=== PATIENT | female | born 1955 | race Caucasian/White ===

== ENCOUNTER 2016-11-06 19:33 | Emergency (ER) | payer MEDICARE, MEDICAID ==
[2016-11-06] MEDS ORDERED: ASPIRIN 81 MG TABLET, CHEWABLE PO ONE (19:46)
--- NOTE | 2016-11-06 19:46 | ER Document Report ---
[id number] Mode of Arrival: Wheelchair Information source: Patient Notes: I have greeted and performed a rapid initial assessment of this patient. A comprehensive ED assessment and evaluation of the patient, analysis of test results and completion of the medical decision making process will be conducted by additional ED providers. TRAVEL OUTSIDE OF THE [place] IN LAST 30 DAYS: No - HPI Patient complains to provider of: LEFT ARM TINGLING Onset: Just prior to arrival Onset/Duration: Sudden Context: PT STATES SHE HAS HAD AR IN PAST WITH SIMILAR SYMPTOMS. PT OF DR. BARBOUR Quality of pain: Pressure Severity: Moderate Pain Level: 3 Associated Symptoms: Chest pain, Nausea, Shortness of breath, Vomiting. denies : Fever Exacerbated by: Denies Relieved by: Denies Similar symptoms previously: Yes Recently seen / treated by doctor: No - Related Data Smoking: Non-smoker Frequency of alcohol use: None Drug Abuse: None Pertinent History: AR WITH STENT PLACEMENT TRIPLE BYPASS, ONE DID NOT TAKE PER PT HTN DM I Allergies/Adverse Reactions: latex [Latex] Allergy (Verified 07/05/13 14:13) Past Medical History - Past Medical History Cardiac Medical History: Reports: Hx Congestive Heart Failure, Hx Coronary Artery Disease, Hx Heart Attack, Hx Hypercholesterolemia, Hx Hypertension, Hx Heart Murmur Pulmonary Medical History: Reports: Hx Bronchitis, Hx COPD Denies: Hx Tuberculosis Endocrine Medical History: Reports: Hx Diabetes Mellitus Type 1, Hx Diabetes Mellitus Type 2 GI Medical History: Reports: Hx Gastroesophageal Reflux Disease Musculoskeltal Medical History: Reports Hx Arthritis - osteo Psychiatric Medical History: Reports: Hx Depression Past Surgical History: Reports: Hx Appendectomy, Hx Cardiac Catheterization - x1 with 1 stent, Hx Cholecystectomy, Hx Coronary Artery Bypass Graft, Hx Coronary Stent, Hx Orthopedic Surgery - cervical spinal surgery, degenerative disc disease, right shoulder scar tis, Other - c spine surgery - Immunizations Hx Diphtheria, Pertussis, Tetanus Vaccination: Yes Physical Exam - Vital signs Vitals: Resp BP Pulse Ox 20 151/92 H 100 11/06/16 19:57 11/06/16 19:57 11/06/16 19:57 Course - Vital Signs Vital signs: Temp Pulse Resp BP Pulse Ox 98.7 F 74 14 160/79 H 100 11/06/16 20:24 11/06/16 20:06 11/06/16 23:01 11/06/16 23:11/06/16 23:01 - Laboratory Result Diagrams: 11/06/16 20:01 11/06/16 20:01 Laboratory results interpreted by me: 11/06/16 11/06/16 11/06/16 20:00 20:01 20:01 RDW 16.6 H Glucose 152 H POC Glucose 145 H Doctor's Discharge - Discharge Clinical Impression: Chest wall pain Condition: Stable Disposition: HOME, SELF-CARE Additional Instructions: Chest Wall Pain: Your chest pain has been diagnosed as coming from the chest wall. This is often caused by straining the muscles or joints in the chest during physical activity, direct trauma, coughing, or vigorous vomiting. Occasionally, no cause can be found. Rest from strenuous physical activity. This kind of chest pain is usually made worse by movement of the chest. Apply gentle warmth to the painful area for 15 minutes every hour or two. You should contact the doctor immediately if things change. Further evaluation is needed if you develop a fever or cough, if the nature of the pain changes, or if you become short of breath. REST. TRY MOIST HEAT IF NEEDED. RETURN IF ANY NEW OR WORSENING SYMPTOMS. FOLLOW UP WITH DR. BARBOUR OR DR. LOPEZ TOMORROW FOR RECHECK. Referrals: JOMAR LOPEZ MD [ACTIVE STAFF] - 11/07/16 JESÚS BARBOUR MD [Primary Care Provider] - 11/07/16
[2016-11-06 20:14] LABS: ABSOLUTE EOSINOPHILS # (AUTO) 0.2 10^3/uL (0.0-0.6); ABSOLUTE LYMPHOCYTES (AUTO) 2.6 10^3/uL (0.5-4.7); ABSOLUTE MONOCYTES (AUTO) 0.7 10^3/uL (0.1-1.4); ABSOLUTE NEUT (AUTO) 3.4 10^3/uL (1.7-8.2); BASOPHILS % (AUTO) 0.5 % (0-2); EOSINOPHILS % (AUTO) 3.3 % (0-6); HEMATOCRIT 37.9 % (36.0-47.0); HEMOGLOBIN 12.6 g/dL (12.0-15.5); HGB HCT DIFFERENCE -0.1; MEAN CORPUSCULAR HEMOGLOBIN 27.2 pg (27.0-33.4); MEAN CORPUSCULAR HGB CONC 33.2 g/dL (32.0-36.0); MEAN CORPUSCULAR VOLUME 82 fl (80-97); MONOCYTES % (AUTO) 10.6 % (3-13); RED BLOOD COUNT 4.63 10^6/uL (3.72-5.28); RED CELL DISTRIBUTION WIDTH 16.6 % (11.5-14.0); SEGMENTED NEUTROPHILS % (AUTO) 48.6 % (42-78)
[2016-11-06 20:18] LABS: PROTHROMBIN TIME 12.7 SEC (11.4-15.4)
--- NOTE | 2016-11-06 20:28 | ER Document Report ---
ED General - General Mode of Arrival: Wheelchair Information source: Patient TRAVEL OUTSIDE OF THE [place] IN LAST 30 DAYS: No - HPI Onset: Other - see narrative Onset/Duration: Persistent Associated symptoms: Other - see narrative <ROXANNE DAVID - Last Filed: 11/06/16 21:34> <SCAR GUARDADO - Last Filed: 11/06/16 22:54> - General Chief Complaint: Numbness of Arm Stated Complaint: ARM NUMBNESS Notes: Patient is a 61-year-old female that presents to the emergency department today with complaints of arm tingling which began 1 hour prior to arrival while the patient was eating dinner. Patient states after that she went to the bathroom, she began feeling nauseated and she vomited x4. Patient states she was "shaky" . Patient states since her symptoms began she has noticed associated chest pressure. Patient had previous CABG on Feb 09 2016. (ROXANNE DAVID) - Related Data Allergies/Adverse Reactions: latex [Latex] Allergy (Verified 07/05/13 14:13) Past Medical History - General Information source: Patient - Social History Smoking Status: Never Smoker Cigarette use (# per day): No Frequency of alcohol use: None Drug Abuse: None Lives with: Family Family History: Reviewed & Not Pertinent - Past Medical History Cardiac Medical History: Reports: Hx Congestive Heart Failure, Hx Coronary Artery Disease, Hx Heart Attack, Hx Hypercholesterolemia, Hx Hypertension, Hx Heart Murmur Pulmonary Medical History: Reports: Hx Bronchitis, Hx COPD Endocrine Medical History: Reports: Hx Diabetes Mellitus Type 1, Hx Diabetes Mellitus Type 2 GI Medical History: Reports: Hx Gastroesophageal Reflux Disease Musculoskeltal Medical History: Reports Hx Arthritis - osteo Psychiatric Medical History: Reports: Hx Depression Past Surgical History: Reports: Hx Appendectomy, Hx Cardiac Catheterization - x1 with 1 stent, Hx Cholecystectomy, Hx Coronary Artery Bypass Graft, Hx Coronary Stent, Hx Orthopedic Surgery - cervical spinal surgery, degenerative disc disease, right shoulder scar tis, Other - c spine surgery - Immunizations Hx Diphtheria, Pertussis, Tetanus Vaccination: Yes Hx Pneumococcal Vaccination: 10/07/09 <ROXANNE DAVID - Last Filed: 11/06/16 21:34> Review of Systems - Review of Systems Constitutional: No symptoms reported EENT: No symptoms reported Cardiovascular: See HPI, Chest pain - "pressure" Respiratory: No symptoms reported Gastrointestinal: See HPI, Nausea, Vomiting Genitourinary: No symptoms reported Female Genitourinary: No symptoms reported Musculoskeletal: No symptoms reported Skin: No symptoms reported Hematologic/Lymphatic: No symptoms reported Neurological/Psychological: See HPI, Tingling - arm -: Yes All other systems reviewed and negative <ROXANNE DAVID - Last Filed: 11/06/16 21:34> Physical Exam - General General appearance: Appears well, Alert In distress: None - HEENT Head: Normocephalic, Atraumatic Eyes: Normal Extraocular movements intact: Yes - Respiratory Respiratory status: No respiratory distress Chest status: Nontender Breath sounds: Normal Chest palpation: Tender - anterior chest wall tenderness with palpation - Cardiovascular Rhythm: Regular Heart sounds: Normal auscultation Murmur: No - Abdominal Inspection: Normal Distension: No distension Tenderness: Nontender - Extremities General upper extremity: Normal inspection, Normal ROM. No: Edema General lower extremity: Normal inspection, Normal ROM. No: Edema - Neurological Neuro grossly intact: Yes Cognition: Normal Speech: Normal Cranial nerves: Normal - Psychological Associated symptoms: Normal affect, Normal mood - Skin Skin Temperature: Warm Skin Moisture: Dry Skin Color: Normal <ROXANNE DAVID - Last Filed: 11/06/16 21:34> Course - Laboratory Result Diagrams: 11/06/16 20:01 11/06/16 20:01 <ROXANNE DAVID - Last Filed: 11/06/16 21:34> - Laboratory Result Diagrams: 11/06/16 20:01 11/06/16 20:01 <SCAR GUARDADO - Last Filed: 11/06/16 22:54> - Re-evaluation Re-evalutation: 11/06/16 22:43 The patient's EKG does not show acute change. The patient's pain is reproducible with palpation. Troponins checked 2 hours apart are undetectable. The patient is comfortable at this time and is not having pain. (SCAR GUARDADO) - Vital Signs Vital signs: Temp Pulse Resp BP Pulse Ox 98.7 F 74 18 156/68 H 99 11/06/16 20:24 11/06/16 20:06 11/06/16 22:01 11/06/16 22:01 11/06/16 22:01 (ROXANNE DAVID) (SCAR GUARDADO) - Laboratory Laboratory results interpreted by me: 11/06/16 11/06/16 20:01 20:01 RDW 16.6 H Glucose 152 H (ROXANNE DAVID) (SCAR GUARDADO) Discharge <ROXANNE DAVID - Last Filed: 11/06/16 21:34> <SCAR GUARDADO - Last Filed: 11/06/16 22:54> - Discharge Clinical Impression: Chest wall pain Condition: Stable Disposition: HOME, SELF-CARE Additional Instructions: Chest Wall Pain: Your chest pain has been diagnosed as coming from the chest wall. This is often caused by straining the muscles or joints in the chest during physical activity, direct trauma, coughing, or vigorous vomiting. Occasionally, no cause can be found. Rest from strenuous physical activity. This kind of chest pain is usually made worse by movement of the chest. Apply gentle warmth to the painful area for 15 minutes every hour or two. You should contact the doctor immediately if things change. Further evaluation is needed if you develop a fever or cough, if the nature of the pain changes, or if you become short of breath. REST. TRY MOIST HEAT IF NEEDED. RETURN IF ANY NEW OR WORSENING SYMPTOMS. FOLLOW UP WITH DR. BARBOUR OR DR. LOPEZ TOMORROW FOR RECHECK. Referrals: JESÚS BARBOUR MD [Primary Care Provider] - 11/07/16 JMOAR LOPEZ MD [ACTIVE STAFF] - 11/07/16 Scribe Attestation: 11/06/16 22:53 I personally performed the services described in the documentation, reviewed and edited the documentation which was dictated to the scribe in my presence, and it accurately records my words and actions. (SCAR GUARDADO) Scribe Documentation - Scribe Written by Dannaibgenet:: Michelle Barrios, [id number] 11/06/16 acting as scribe for :: Jayla <ROXANNE DAVID - Last Filed: 11/06/16 21:34>
[2016-11-06] MEDS ORDERED: MORPHINE SULFATE 10 MG/ML INJ IV ONE (20:34)
[2016-11-06] MEDS ORDERED: ONDANSETRON HCL INJ/PF 4 MG/2 ML SDV IV ONE (20:34)
[2016-11-06 20:36] LABS: ALANINE AMINOTRANSFERASE 25 U/L (9-52); ALBUMIN 3.9 g/dL (3.5-5.0); ALKALINE PHOSPHATASE 104 U/L (38-126); ANION GAP 12 (5-19); ASPARTATE AMINO TRANSFERASE 25 U/L (14-36); BILIRUBIN,TOTAL 0.9 mg/dL (0.2-1.3); BLOOD UREA NITROGEN 20 mg/dL (7-20); CALCIUM 9.8 mg/dL (8.4-10.2); CARBON DIOXIDE 29 mmol/L (22-30); CHLORIDE 99 mmol/L (98-107); CREATINE KINASE 39 U/L (30-135); CREATININE RESULT 0.83 mg/dL (0.52-1.25); GLUCOSE 152 mg/dL (75-110); POTASSIUM 4.2 mmol/L (3.6-5.0); SODIUM 139.8 mmol/L (137-145); TOTAL PROTEIN 7.7 g/dL (6.3-8.2)
[2016-11-06 20:46] LABS: CREATINE KINASE MB 0.25 ng/mL (<4.55); TROPONIN I < 0.012 ng/mL
[2016-11-06 23:24] VITALS: BP 160/79
--- NOTE | 2016-11-07 09:24 | EKG REPORT ---
SEVERITY:- BORDERLINE ECG - SINUS RHYTHM PROBABLE LEFT ATRIAL ABNORMALITY LOW VOLTAGE IN FRONTAL LEADS BORDERLINE R WAVE PROGRESSION, ANTERIOR LEADS : Confirmed by: Ed Yepez 07-Nov-2016 09:23:35
== END 2016-11-06 23:24 | disposition home or self-care (01) ==
LOC: ER 19:33
DX: R07.89 Other chest pain (principal); R20.2 Paresthesia of skin; R11.2 Nausea with vomiting, unspecified; I25.10 Atherosclerotic heart disease of native coronary artery without angina pectoris; I25.2 Old myocardial infarction; I10 Essential (primary) hypertension; J44.9 Chronic obstructive pulmonary disease, unspecified; E11.9 Type 2 diabetes mellitus without complications; Z95.1 Presence of aortocoronary bypass graft; Z98.61 Coronary angioplasty status; Z91.040 Latex allergy status
CPT/HCPCS: 93005; 99284; 96374; 96375; 36415; 82553; 82962; 82550; 85025; 85610; 80053; 84484; 71010; 93010; A9270; J2270; J2405

== ENCOUNTER 2016-11-25 17:21 | Emergency (ER) | payer MEDICARE, MEDICAID ==
[2016-11-25] MEDS ORDERED: ASPIRIN 81 MG TABLET, CHEWABLE PO ONE (18:04)
--- NOTE | 2016-11-25 18:05 | ER Document Report ---
ED Medical Screen (RME) - General Stated Complaint: CHEST PAIN, BACK PAIN Information source: Patient Notes: Reports chest pain that started around 4 PM. Patient reports taking nitroglycerin at home that initially helped her chest pain symptoms, but that chest pain symptoms returned. Patient does report some mild difficulty breathing. No nausea or vomiting. hx: Triple bypass, [place], diabetes I have greeted and performed a rapid initial assessment of this patient. A comprehensive ED assessment and evaluation of the patient, analysis of test results and completion of the medical decision making process will be conducted by additional ED providers. TRAVEL OUTSIDE OF THE [place] IN LAST 30 DAYS: No - Related Data Allergies/Adverse Reactions: latex [Latex] Allergy (Verified 11/25/16 18:01) Past Medical History - Past Medical History Cardiac Medical History: Reports: Hx Congestive Heart Failure, Hx Coronary Artery Disease, Hx Heart Attack, Hx Hypercholesterolemia, Hx Hypertension, Hx Heart Murmur Pulmonary Medical History: Reports: Hx Bronchitis, Hx COPD Denies: Hx Tuberculosis Endocrine Medical History: Reports: Hx Diabetes Mellitus Type 1, Hx Diabetes Mellitus Type 2 Renal/ Medical History: Denies: Hx Peritoneal Dialysis GI Medical History: Reports: Hx Gastroesophageal Reflux Disease Musculoskeltal Medical History: Reports Hx Arthritis - osteo Psychiatric Medical History: Reports: Hx Depression Past Surgical History: Reports: Hx Appendectomy, Hx Cardiac Catheterization - x1 with 1 stent, Hx Cholecystectomy, Hx Coronary Artery Bypass Graft, Hx Coronary Stent, Hx Orthopedic Surgery - cervical spinal surgery, degenerative disc disease, right shoulder scar tis, Other - c spine surgery - Immunizations Hx Diphtheria, Pertussis, Tetanus Vaccination: Yes Physical Exam - Vital signs Vitals: Temp Pulse Resp BP Pulse Ox 97.6 F 73 16 206/75 H 99 11/25/16 17:39 11/25/16 17:39 11/25/16 17:39 11/25/16 17:39 11/25/16 17:39 - Cardiovascular Rhythm: Regular Heart sounds: S1 appreciated, S2 appreciated Course - Vital Signs Vital signs: Temp Pulse Resp BP Pulse Ox 97.6 F 73 16 206/75 H 99 11/25/16 17:39 11/25/16 17:39 11/25/16 17:39 11/25/16 17:39 11/25/16 17:39
[2016-11-25 18:38] LABS: APPEARANCE,URINE SLIGHTLY-CLOUDY; BILIRUBIN,URINE NEGATIVE (NEGATIVE); GLUCOSE, URINE 50 mg/dL (NEGATIVE); KETONES,URINE NEGATIVE (NEGATIVE); LEUKOCYTE ESTERASE,URINE SMALL (NEGATIVE); NITRITE,URINE NEGATIVE (NEGATIVE); PROTEIN,URINE NEGATIVE (NEGATIVE); URINE SPECIFIC GRAVITY 1.004; UROBILINOGEN,URINE NEGATIVE mg/dL (<2.0)
[2016-11-25 18:38] LABS: ABSOLUTE EOSINOPHILS # (AUTO) 0.1 10^3/uL (0.0-0.6); ABSOLUTE MONOCYTES (AUTO) 0.5 10^3/uL (0.1-1.4); ABSOLUTE NEUT (AUTO) 2.9 10^3/uL (1.7-8.2); BASOPHILS % (AUTO) 0.6 % (0-2); EOSINOPHILS % (AUTO) 2.6 % (0-6); HEMATOCRIT 37.5 % (36.0-47.0); HEMOGLOBIN 12.4 g/dL (12.0-15.5); HGB HCT DIFFERENCE -0.3; LYMPHOCYTES % (AUTO) 35.6 % (13-45); MEAN CORPUSCULAR HGB CONC 33.1 g/dL (32.0-36.0); MEAN CORPUSCULAR VOLUME 82 fl (80-97); MONOCYTES % (AUTO) 9.2 % (3-13); RED CELL DISTRIBUTION WIDTH 16.7 % (11.5-14.0); WHITE BLOOD COUNT 5.6 10^3/uL (4.0-10.5)
[2016-11-25 18:55] LABS: ALANINE AMINOTRANSFERASE 25 U/L (9-52); ALBUMIN 4.3 g/dL (3.5-5.0); ALKALINE PHOSPHATASE 96 U/L (38-126); ANION GAP 10 (5-19); ASPARTATE AMINO TRANSFERASE 18 U/L (14-36); BILIRUBIN,TOTAL 0.8 mg/dL (0.2-1.3); BLOOD UREA NITROGEN 12 mg/dL (7-20); CALCIUM 10.2 mg/dL (8.4-10.2); CARBON DIOXIDE 29 mmol/L (22-30); CHLORIDE 104 mmol/L (98-107); CREATINE KINASE 47 U/L (30-135); GLUCOSE 125 mg/dL (75-110); MAGNESIUM 1.8 mg/dL (1.6-2.3); POTASSIUM 4.5 mmol/L (3.6-5.0); SODIUM 142.8 mmol/L (137-145); TOTAL PROTEIN 7.3 g/dL (6.3-8.2)
[2016-11-25 19:06] LABS: CREATINE KINASE MB 0.34 ng/mL (<4.55)
[2016-11-25 19:15] LABS: TROPONIN I < 0.012 ng/mL
--- NOTE | 2016-11-25 19:50 | ER Document Report ---
ED General - General Chief Complaint: Chest Pain Stated Complaint: CHEST PAIN, BACK PAIN Notes: Patient is a 61-year-old female past medical history of coronary artery disease status post CABG, most recent catheterization in April 2016 after I saw this patient and she was having a NSTEMI, who presents with chest pain. States the pain started abruptly several hours prior to arrival. Described as a dull, throbbing left-sided chest pain with radiation to the left arm. States pain does not feel as bad as when she has had heart attacks in the past. She did take nitroglycerin at home without improvement of her symptoms although she knows of the chest pain is now completely resolved. Nothing worsens or symptoms. She has not seen a race steward or primary care doctor concerns. She did have a stress test in late September 2016 which was noted to be normal per her report. She denies any history of DVT or pulmonary embolus. No associated nausea, vomiting, diaphoresis or shortness of breath. TRAVEL OUTSIDE OF THE [place] IN LAST 30 DAYS: No - Related Data Allergies/Adverse Reactions: latex [Latex] Allergy (Verified 11/25/16 18:01) Past Medical History - General Information source: Patient - Social History Smoking Status: Never Smoker Chew tobacco use (# tins/day): No Frequency of alcohol use: None Drug Abuse: None Lives with: Spouse/Significant other Family History: Reviewed & Not Pertinent Patient has suicidal ideation: No Patient has homicidal ideation: No - Past Medical History Cardiac Medical History: Reports: Hx Congestive Heart Failure, Hx Coronary Artery Disease, Hx Heart Attack, Hx Hypercholesterolemia, Hx Hypertension, Hx Heart Murmur Pulmonary Medical History: Reports: Hx Bronchitis, Hx COPD Denies: Hx Tuberculosis Endocrine Medical History: Reports: Hx Diabetes Mellitus Type 1, Hx Diabetes Mellitus Type 2 Renal/ Medical History: Denies: Hx Peritoneal Dialysis GI Medical History: Reports: Hx Gastroesophageal Reflux Disease Musculoskeltal Medical History: Reports Hx Arthritis - osteo Psychiatric Medical History: Reports: Hx Depression Past Surgical History: Reports: Hx Appendectomy, Hx Cardiac Catheterization - x1 with 1 stent, Hx Cholecystectomy, Hx Coronary Artery Bypass Graft, Hx Coronary Stent, Hx Orthopedic Surgery - cervical spinal surgery, degenerative disc disease, right shoulder scar tis, Other - c spine surgery - Immunizations Hx Diphtheria, Pertussis, Tetanus Vaccination: Yes Hx Pneumococcal Vaccination: 10/07/09 Review of Systems - Review of Systems Notes: Constitutional: Negative for fever. HENT: Negative for sore throat. Eyes: Negative for visual changes. Cardiovascular: Positive for chest pain. Respiratory: Negative for shortness of breath. Gastrointestinal: Negative for abdominal pain, vomiting or diarrhea. Genitourinary: Negative for dysuria. Musculoskeletal: Negative for back pain. Skin: Negative for rash. Neurological: Negative for headaches, weakness or numbness. 10 point ROS negative except as marked above and in HPI. Physical Exam - Vital signs Vitals: Temp Pulse Resp BP Pulse Ox 97.6 F 73 16 206/75 H 99 11/25/16 17:39 11/25/16 17:39 11/25/16 17:39 11/25/16 17:39 11/25/16 17:39 Interpretation: Hypertensive Notes: PHYSICAL EXAMINATION: GENERAL: Well-appearing, well-nourished and in no acute distress. HEAD: Atraumatic, normocephalic. EYES: Pupils equal round and reactive to light, extraocular movements intact, sclera anicteric, conjunctiva are normal. ENT: nares patent, oropharynx clear without exudates. Moist mucous membranes. NECK: Normal range of motion, supple without lymphadenopathy LUNGS: Breath sounds clear to auscultation bilaterally and equal. No wheezes rales or rhonchi. HEART: Regular rate and rhythm without murmurs ABDOMEN: Soft, nontender, normoactive bowel sounds. No guarding, no rebound. No masses appreciated. EXTREMITIES: Normal range of motion, no pitting or edema. No cyanosis. NEUROLOGICAL: No focal neurological deficits. Moves all extremities spontaneously and on command. PSYCH: Normal mood, normal affect. SKIN: Warm, Dry, normal turgor, no rashes or lesions noted. Course - Re-evaluation Re-evalutation: 11/25/16 19:44 Presentation of chest pain in an otherwise well appearing patient. Low clinical suspicion for ACS given clinical history, exam, EKG without ST elevations or depressions, and negative initial troponin. Patient did have a normal stress test in September 2016 which was noted to be normal. PE also seems unlikely given clinical history, absence of tachycardia or dyspnea. Well's score 0. CXR without evidence of pneumothorax or pneumonia. No widened mediastinum. Aortic dissection also seems unlikely given history, symmetric pulses, CXR, and vitals. Will obtain a second troponin 3 hours from the first which will be at over 6 hours from onset of pain today. I have also discussed this case with , the patient's race steward: He agrees that a second troponin remains negative patient will be safe for discharge home with follow-up with him in the office in the morning. 11/25/16 22:46 Second troponin remains negative. Patient continues to be chest pain-free.of note, patient is hypertensive here in the emergency department she is not had her normal home antihypertensives. I've instructed her to take these when she gets home. At this time will discharge with return precautions and follow-up recommendations. Verbal discharge instructions given a the bedside and opportunity for questions given. Medication warnings reviewed. Patient is in agreement with this plan and has verbalized understanding of return precautions and the need for follow-up with her race steward in the morning. - Vital Signs Vital signs: Temp Pulse Resp BP Pulse Ox 97.6 F 73 17 200/79 H 98 11/25/16 17:39 11/25/16 17:39 11/25/16 23:01 11/25/16 23:01 11/25/16 23:01 - Laboratory Result Diagrams: 11/25/16 18:20 11/25/16 18:20 Laboratory results interpreted by me: 11/25/16 11/25/16 11/25/16 17:36 18:20 18:20 RDW 16.7 H Glucose 125 H Urine Glucose (UA) 50 H Ur Leukocyte Esterase SMALL H - Diagnostic Test Radiology reviewed: Image reviewed, Reports reviewed Radiology results interpreted by me: 11/25/16 19:50 Chest x-ray: No acute infiltrate or pneumothorax - EKG Interpretation by Me Additional EKG results interpreted by me: 11/25/16 19:50 Sinus rhythm. Rate 79. No ST elevations or depressions. Discharge - Discharge Clinical Impression: Chest pain Condition: Good Disposition: HOME, SELF-CARE Additional Instructions: You were seen today for chest pain. The exact cause of your pain is unclear. However, based on your cardiac enzyme testing, chest x-ray, and EKG it does not appear that it is from an immediately life-threatening cause at this time. I have spoken with your race steward Dr. Yepez who has asked that you come to his office in the morning for follow-up appointment. Please return to emergency department immediately if you have worsening of your chest pain, shortness of breath, vomiting, become unable to exert yourself due to pain or difficulty breathing, you pass out, or have any pain that radiates into your arms, jaw, or back. Please also return if you have any additional symptoms that are concerning to you. Referrals: JESÚS BARBOUR MD [Primary Care Provider] - Follow up as needed
--- NOTE | 2016-11-25 21:56 | EKG REPORT ---
SEVERITY:- ABNORMAL ECG - SINUS RHYTHM PROBABLE LEFT ATRIAL ABNORMALITY CONSIDER ANTEROSEPTAL INFARCT NONSPECIFIC ST-T CHANGES- V5-V6 LEADS : Confirmed by: Ed Yepez 25-Nov-2016 21:56:11
[2016-11-25 23:09] VITALS: BP 200/79
== END 2016-11-25 23:01 | disposition home or self-care (01) ==
LOC: ER 17:21
DX: R07.9 Chest pain, unspecified (principal); M54.9 Dorsalgia, unspecified
CPT/HCPCS: 93005; 99285; 36415; 82553; 82550; 83735; 85025; 80053; 81001; 84484; 71020; 93010; A9270

== ENCOUNTER 2017-05-21 02:20 | Emergency (ER) | payer MEDICARE, MEDICAID ==
[2017-05-21] MEDS ORDERED: ASPIRIN 81 MG TABLET, CHEWABLE PO ONE (02:43)
[2017-05-21] MEDS ORDERED: ONDANSETRON HCL INJ/PF 4 MG/2 ML SDV IV ONE (03:20)
[2017-05-21] MEDS ORDERED: NITROGLYCERIN 2% OINTMENT 1 GM PACKET TP ONE (03:20)
[2017-05-21] MEDS ORDERED: NORMAL SALINE 500 ML IV ONE (03:20)
[2017-05-21 03:37] LABS: ABSOLUTE BASOPHILS # (AUTO) 0.1 10^3/uL (0.0-0.2); ABSOLUTE EOSINOPHILS # (AUTO) 0.2 10^3/uL (0.0-0.6); ABSOLUTE LYMPHOCYTES (AUTO) 2.6 10^3/uL (0.5-4.7); ABSOLUTE MONOCYTES (AUTO) 0.7 10^3/uL (0.1-1.4); BASOPHILS % (AUTO) 0.8 % (0-2); EOSINOPHILS % (AUTO) 3.1 % (0-6); HEMATOCRIT 41.7 % (36.0-47.0); HGB HCT DIFFERENCE 0.3; LYMPHOCYTES % (AUTO) 34.5 % (13-45); MEAN CORPUSCULAR HEMOGLOBIN 29.4 pg (27.0-33.4); MEAN CORPUSCULAR HGB CONC 33.6 g/dL (32.0-36.0); MEAN CORPUSCULAR VOLUME 88 fl (80-97); RED BLOOD COUNT 4.76 10^6/uL (3.72-5.28); RED CELL DISTRIBUTION WIDTH 15.4 % (11.5-14.0); SEGMENTED NEUTROPHILS % (AUTO) 52.6 % (42-78); WHITE BLOOD COUNT 7.7 10^3/uL (4.0-10.5)
[2017-05-21 03:44] LABS: ALANINE AMINOTRANSFERASE 40 U/L (9-52); ALBUMIN 4.2 g/dL (3.5-5.0); ALKALINE PHOSPHATASE 117 U/L (38-126); ANION GAP 13 (5-19); ASPARTATE AMINO TRANSFERASE 27 U/L (14-36); BILIRUBIN,DIRECT 0.4 mg/dL (0.0-0.4); BILIRUBIN,TOTAL 1.1 mg/dL (0.2-1.3); BLOOD UREA NITROGEN 22 mg/dL (7-20); CALCIUM 10.1 mg/dL (8.4-10.2); CARBON DIOXIDE 24 mmol/L (22-30); CHLORIDE 102 mmol/L (98-107); CREATINE KINASE 47 U/L (30-135); CREATININE RESULT 1.03 mg/dL (0.52-1.25); GLUCOSE 195 mg/dL (75-110); LIPASE 177.1 U/L (23-300); MAGNESIUM 1.6 mg/dL (1.6-2.3); POTASSIUM 4.1 mmol/L (3.6-5.0); SODIUM 138.7 mmol/L (137-145); TOTAL PROTEIN 7.5 g/dL (6.3-8.2)
[2017-05-21 03:56] LABS: CREATINE KINASE MB 0.89 ng/mL (<4.55)
[2017-05-21 04:02] LABS: TROPONIN I 0.057 ng/mL
--- NOTE | 2017-05-21 04:17 | RADIOLOGY REPORT (SQ) ---
EXAM DESCRIPTION: CHEST SINGLE VIEW COMPLETED DATE/TIME: 05/21/2017 4:05 am REASON FOR STUDY: cp COMPARISON: None. EXAM PARAMETERS: NUMBER OF VIEWS: One view. TECHNIQUE: Single frontal radiographic view of the chest acquired. RADIATION DOSE: NA LIMITATIONS: None. FINDINGS: LUNGS AND PLEURA: No opacities, masses or pneumothorax. No pleural effusion. MEDIASTINUM AND HILAR STRUCTURES: No masses. Contour normal. HEART AND VASCULAR STRUCTURES: Heart normal in size. Normal vasculature. BONES: No acute findings. HARDWARE: Prior sternotomy. OTHER: No other significant finding. IMPRESSION: NO ACUTE RADIOGRAPHIC FINDING IN THE CHEST. TECHNICAL DOCUMENTATION: JOB ID: [id number]
[2017-05-21] MEDS ORDERED: ENOXAPARIN SODIUM INJ 100 MG/1 ML DISP.SYRIN SUBCUT SCH ×2 (05:15→18:00)
[2017-05-21] MEDS ORDERED: ENOXAPARIN SODIUM INJ 100 MG/1 ML DISP.SYRIN SUBCUT ONE (05:30)
[2017-05-21] MEDS ORDERED: MORPHINE SULFATE 10 MG/ML INJ IV PRN (05:48)
[2017-05-21] MEDS: ONDANSETRON HCL INJ/PF 4 MG/2 ML SDV IV PRN ×2 (06:07→20:08)
[2017-05-21 06:12] LABS: APPEARANCE,URINE CLOUDY; BILIRUBIN,URINE NEGATIVE (NEGATIVE); GLUCOSE, URINE NEGATIVE (NEGATIVE); KETONES,URINE NEGATIVE (NEGATIVE); LEUKOCYTE ESTERASE,URINE LARGE (NEGATIVE); NITRITE,URINE POSITIVE (NEGATIVE); PROTEIN,URINE 30 mg/dL (NEGATIVE); URINE SPECIFIC GRAVITY 1.019
[2017-05-21] MEDS ORDERED: CEFTRIAXONE 1 GM/D5W RTU 50 ML IV ONE (06:23)
--- NOTE | 2017-05-21 06:26 | ER Document Report ---
ED General - General Chief Complaint: Chest Pain Stated Complaint: CHEST PAIN Time Seen by Provider: 05/21/17 02:45 TRAVEL OUTSIDE OF THE [place]. IN LAST 30 DAYS: No - HPI Patient complains to provider of: Chest pain Notes: Patient coming in for evaluation of chest pain. Patient states significant chest pain over the weekend seen at her PCPs office earlier today and EKG performed showing diffuse T-wave inversions changed from her previous EKG and was told by her PCP to go to the cardiac center at [facility] where she has had previous bypass and stents placed patient states that she went to [facility] however after waiting in the ER for 10 hours drove back to [place] during the trip started experiencing chest pain with nausea vomiting therefore came to the ER here at [facility]. Patient states pain continued still feels nauseous. Patient other than traveling today denies any other travel denies any fevers chills diarrhea denies any trauma. Patient states recently did see her accounts payable assistant currently pending possible stent placement and part of her bypass grafts - Related Data Allergies/Adverse Reactions: latex [Latex] Allergy (Verified 11/25/16 18:01) Past Medical History - Social History Smoking Status: Unknown if Ever Smoked Family History: Reviewed & Not Pertinent - Past Medical History Cardiac Medical History: Reports: Hx Congestive Heart Failure, Hx Coronary Artery Disease, Hx Heart Attack, Hx Hypercholesterolemia, Hx Hypertension, Hx Heart Murmur Pulmonary Medical History: Reports: Hx Bronchitis, Hx COPD Denies: Hx Tuberculosis Endocrine Medical History: Reports: Hx Diabetes Mellitus Type 1, Hx Diabetes Mellitus Type 2 Renal/ Medical History: Denies: Hx Peritoneal Dialysis GI Medical History: Reports: Hx Gastroesophageal Reflux Disease Musculoskeltal Medical History: Reports Hx Arthritis - osteo Psychiatric Medical History: Reports: Hx Depression Past Surgical History: Reports: Hx Appendectomy, Hx Cardiac Catheterization - x1 with 1 stent, Hx Cholecystectomy, Hx Coronary Artery Bypass Graft, Hx Coronary Stent, Hx Orthopedic Surgery - cervical spinal surgery, degenerative disc disease, right shoulder scar tis, Other - c spine surgery - Immunizations Hx Diphtheria, Pertussis, Tetanus Vaccination: Yes Hx Pneumococcal Vaccination: 10/07/09 Review of Systems - Review of Systems Constitutional: No symptoms reported EENT: No symptoms reported Cardiovascular: Chest pain Respiratory: No symptoms reported Gastrointestinal: No symptoms reported Genitourinary: No symptoms reported Female Genitourinary: No symptoms reported Musculoskeletal: No symptoms reported Skin: No symptoms reported Hematologic/Lymphatic: No symptoms reported Neurological/Psychological: No symptoms reported Physical Exam - Vital signs Vitals: Resp 20 05/21/17 02:54 Interpretation: Normal - General General appearance: Appears well, Alert - HEENT Head: Normocephalic, Atraumatic Eyes: Normal Pupils: PERRL - Respiratory Respiratory status: No respiratory distress Chest status: Nontender Breath sounds: Normal Chest palpation: Normal - Cardiovascular Rhythm: Regular Heart sounds: Normal auscultation Murmur: No - Abdominal Inspection: Normal Distension: No distension Bowel sounds: Normal Tenderness: Nontender Organomegaly: No organomegaly - Back Back: Normal, Nontender - Extremities General upper extremity: Normal inspection, Nontender, Normal color, Normal ROM , Normal temperature General lower extremity: Normal inspection, Nontender, Normal color, Normal ROM , Normal temperature, Normal weight bearing. No: Hortencia's sign - Neurological Neuro grossly intact: Yes Cognition: Normal Orientation: AAOx4 Sweetser Coma Scale Eye Opening: Spontaneous Sweetser Coma Scale Verbal: Oriented Sweetser Coma Scale Motor: Obeys Commands Joni Coma Scale Total: 15 Speech: Normal Motor strength normal: LUE, RUE, LLE, RLE Sensory: Normal - Psychological Associated symptoms: Normal affect, Normal mood - Skin Skin Temperature: Warm Skin Moisture: Dry Skin Color: Normal Course - Re-evaluation Re-evalutation: 05/21/17 06:23 EKG shows diffuse T-wave inversions which are new compared to EKG from November. T-wave inversions from V2 to V6 that are very deep. Patient's lab work shows negative troponin negative chest x-ray. Patient's pain improved with nitro. Patient also complaining of dysuria states currently being treated for UTI urinalysis found returned showing UTI will give Rocephin we will send urine for culture. Discuss case with PCP Lacy Benson requesting to transfer patient to [facility] discuss case with track repairer helper at [facility]. Agrees with transfer of the patient currently states that there is a prolonged wait time for cardiac beds. Agrees with current management requesting Lovenox for possible unstable angina. I did discuss this with patient patient states an understanding. - Vital Signs Vital signs: Temp Pulse Resp BP Pulse Ox 23 H 104/37 L 95 05/21/17 03:46 05/21/17 05:01 05/21/17 05:01 - Laboratory Result Diagrams: 05/21/17 03:20 05/21/17 03:20 Laboratory results interpreted by me: 05/21/17 05/21/17 05/21/17 03:20 03:20 05:32 RDW 15.4 H BUN 22 H Est GFR (Non-Af Amer) 54 L Glucose 195 H Urine Protein 30 H Urine Nitrite POSITIVE H Urine Urobilinogen 2.0 H Ur Leukocyte Esterase LARGE H Discharge - Discharge Clinical Impression: Chest pain Qualifiers: Chest pain type: unspecified Qualified Code(s): R07.9 - Chest pain, unspecified Urinary tract infection Qualifiers: Urinary tract infection type: acute cystitis Hematuria presence: without hematuria Qualified Code(s): N30.00 - Acute cystitis without hematuria Condition: Good Disposition: [facility]
[2017-05-21 06:57] LABS: PROTHROMBIN TIME 12.6 SEC (11.4-15.4)
--- NOTE | 2017-05-21 07:55 | EKG REPORT ---
SEVERITY:- ABNORMAL ECG - SINUS RHYTHM PROBABLE LEFT ATRIAL ABNORMALITY NONSPECIFIC INTRAVENTRICULAR CONDUCTION DELAY CONSIDER ANTERIOR INFARCT ST DEPRESSION, CONSIDER ISCHEMIA, LAT LEADS : Confirmed by: Tee Valera MD 21-May-2017 07:54:31
--- NOTE | 2017-05-21 07:56 | EKG REPORT ---
SEVERITY:- ABNORMAL ECG - SINUS RHYTHM REPOL ABNRM, PROBABLE ISCHEMIA, ANT-LAT LEADS, THIS IS NEW, COMPARED TO LAST EKG 11/25/16 . CLINICAL CORRELATION NEEDED. PROLONGED QT INTERVAL : Confirmed by: Tee Valera MD 21-May-2017 07:55:45
[2017-05-21] MEDS ORDERED: ATORVASTATIN CALCIUM 80 MG TABLET PO ONE (10:13)
[2017-05-21] MEDS ORDERED: GLUCAGON,HUMAN RECOMB 1 MG INJ IM PRN (10:22)
[2017-05-21] MEDS ORDERED: DEXTROSE 40% GEL 15 GM TUBE PO PRN ×2 (10:22)
[2017-05-21] MEDS ORDERED: DEXTROSE 50%-WATER 25 GM/50 ML DISP.SYRIN IV PRN ×2 (10:22)
[2017-05-21] MEDS ORDERED: PREGABALIN 100 MG CAPSULE PO SCH (10:30)
[2017-05-21] MEDS ORDERED: SERTRALINE HCL 50 MG TABLET PO SCH (10:30)
[2017-05-21] MEDS ORDERED: ACETAMINOPHEN 325 MG TABLET PO ONE (10:34)
[2017-05-21] MEDS ORDERED: TICAGRELOR 90 MG TABLET PO SCH (10:45)
[2017-05-21] MEDS ORDERED: CEFTRIAXONE 1 GM/D5W RTU 1 GM/50 ML RTUPB IV ONE (10:54)
[2017-05-21] MEDS: INSULIN REG, HUMAN 100 UNIT/ML 3 ML VIAL (PYX) SUBCUT PRN ×2 (11:19→16:29)
--- NOTE | 2017-05-21 17:32 | ER Document Report ---
Doctor's Note Notes: 05/21/17 17:29 Patient had remained stable throughout the day with systolic blood pressures usually running between 95 and 105. Her troponins have been trending down. She remains on a wait list for [facility]. Most of her medications were resumed today, except for the blood pressure, beta-blockers and nitrates due to the low heart rate, low blood pressure throughout the day, and she is on nitroglycerin paste. She also did not have Vesicare and omeprazole started as they are not carried by the hospital, and are not urgently needed. Patient care is transferred to Dr. Webb at this time.
[2017-05-21 20:59] VITALS: BP 143/75
[2017-05-21] MEDS ORDERED: PREGABALIN 100 MG CAPSULE PO ONE (21:00)
--- NOTE | 2017-05-21 23:00 | ER Document Report ---
Doctor's Note Notes: 05/21/17 20:00 Transport is here for patient. Patient is medically stable for transfer at this time.
[2017-05-22] MEDS ORDERED: PREGABALIN 100 MG CAPSULE PO SCH (10:00)
[2017-05-22] MEDS ORDERED: FLUTICASONE NASAL SPRAY 50 MCG/SPRY 120 SPRAY/16 GM NASL SCH (14:00)
[2017-05-23] MEDS ORDERED: ASPIRIN 81 MG TABLET, CHEWABLE PO SCH (10:00)
== END 2017-05-21 20:43 | disposition short-term general hospital (02) ==
LOC: ER 02:20
DX: N30.00 Acute cystitis without hematuria (principal); R07.9 Chest pain, unspecified; E11.9 Type 2 diabetes mellitus without complications; I50.9 Heart failure, unspecified; I25.10 Atherosclerotic heart disease of native coronary artery without angina pectoris; I11.0 Hypertensive heart disease with heart failure; Z90.49 Acquired absence of other specified parts of digestive tract; Z95.1 Presence of aortocoronary bypass graft; Z91.040 Latex allergy status
CPT/HCPCS: 93005; 99285; 96372; 96375; 96365; 36415; 87040; 87086; 82553; 82962; 82550; 83690; 83735; 85025; 85610; 85730; 87088; 80053; 81001; 84484; 87186; 71010; 93010; A9270 ×6; J2270; J2405; J7040; J1650; J0696; J1815; J3490

== ENCOUNTER 2017-10-17 13:31 | Observation (INO) | payer MEDICARE, MEDICAID ==
--- NOTE | 2017-10-17 15:41 | ER Document Report ---
ED Medical Screen (RME) - General Chief Complaint: Fall Stated Complaint: FALL/PAIN ALL OVER Time Seen by Provider: 10/17/17 15:30 Notes: The patient is a 62 yo female, PMHX DM, presents after frequent falls today and intermittent slurred speech earlier today. She landed on her knees. Not sure if she hit her head. BG 380's PE: No acute distress. No slurred speech. 5/5 strength in all 4 extremities. Sensation intact. I have greeted and performed a rapid initial assessment of this patient. A comprehensive ED assessment and evaluation of the patient, analysis of test results and completion of the medical decision making process will be conducted by additional ED providers. TRAVEL OUTSIDE OF THE [place]. IN LAST 30 DAYS: No - Related Data Allergies/Adverse Reactions: latex [Latex] Allergy (Verified 10/17/17 13:33) Past Medical History - Past Medical History Cardiac Medical History: Reports: Hx Congestive Heart Failure, Hx Coronary Artery Disease, Hx Heart Attack, Hx Hypercholesterolemia, Hx Hypertension, Hx Heart Murmur Pulmonary Medical History: Reports: Hx Bronchitis, Hx COPD Denies: Hx Tuberculosis Endocrine Medical History: Reports: Hx Diabetes Mellitus Type 1, Hx Diabetes Mellitus Type 2 Renal/ Medical History: Denies: Hx Peritoneal Dialysis GI Medical History: Reports: Hx Gastroesophageal Reflux Disease Musculoskeltal Medical History: Reports Hx Arthritis - osteo Psychiatric Medical History: Reports: Hx Depression Past Surgical History: Reports: Hx Appendectomy, Hx Cardiac Catheterization - x1 with 1 stent, Hx Cholecystectomy, Hx Coronary Artery Bypass Graft, Hx Coronary Stent, Hx Orthopedic Surgery - cervical spinal surgery, degenerative disc disease, right shoulder scar tis, Other - c spine surgery - Immunizations Hx Diphtheria, Pertussis, Tetanus Vaccination: Yes Physical Exam - Vital signs Vitals: Temp Pulse Resp BP Pulse Ox 97.5 F 63 18 112/58 L 96 10/17/17 13:58 10/17/17 13:58 10/17/17 13:58 10/17/17 13:58 10/17/17 13:58 Course - Vital Signs Vital signs: Temp Pulse Resp BP Pulse Ox 97.5 F 59 L 16 131/65 H 100 10/17/17 13:58 10/17/17 15:30 10/17/17 15:30 10/17/17 15:30 10/17/17 15:30
--- NOTE | 2017-10-17 16:00 | RADIOLOGY REPORT (SQ) ---
EXAM DESCRIPTION: CT HEAD WITHOUT COMPLETED DATE/TIME: 10/17/2017 3:52 pm REASON FOR STUDY: intermittent slurred speech COMPARISON: September 2016 TECHNIQUE: Axial images acquired through the brain without intravenous contrast. Images reviewed wi th bone, brain and subdural windows. Images stored on PACS. All CT scanners at this facility use dose modulation, iterative reconstruction, and/or weight based d osing when appropriate to reduce radiation dose to as low as reasonably achievable (ALARA). [facility]: Dose Right [facility]: CareDose [facility]: Dose Right [facility]: Teradose 4D [facility]: [employer] RADIATION DOSE: mGy. LIMITATIONS: None. FINDINGS: VENTRICLES: Normal size and contour. CEREBRUM: No masses. No hemorrhage. No midline shift. No evidence for acute infarction. Normal gra y/white matter differentiation. No areas of low density in the white matter. CEREBELLUM: No masses. No hemorrhage. No alteration of density. No evidence for acute infarction. EXTRAAXIAL SPACES: No fluid collections. No masses. ORBITS AND GLOBE: No intra- or extraconal masses. Normal contour of globe without masses. CALVARIUM: No fracture. PARANASAL SINUSES: No fluid or mucosal thickening. SOFT TISSUES: No mass or hematoma. OTHER: No other significant finding. IMPRESSION: NORMAL BRAIN CT WITHOUT CONTRAST. EVIDENCE OF ACUTE STROKE: NO. COMMENT: Quality ID # [id number]: Final reports with documentation of one or more dose reduction techniques (e.g., Automated exposure control, adjustment of the mA and/or kV according to patient size, use of iterative reconstruction technique) TECHNICAL DOCUMENTATION: JOB ID: [id number] [employer]- All Rights Reserved
[2017-10-17 16:42] LABS: APPEARANCE,URINE CLOUDY; BILIRUBIN,URINE NEGATIVE (NEGATIVE); COLOR,URINE YELLOW; GLUCOSE, URINE >=500 mg/dL (NEGATIVE); KETONES,URINE NEGATIVE (NEGATIVE); LEUKOCYTE ESTERASE,URINE SMALL (NEGATIVE); NITRITE,URINE NEGATIVE (NEGATIVE); PROTEIN,URINE NEGATIVE (NEGATIVE); URINE SPECIFIC GRAVITY 1.013
[2017-10-17] MEDS: NORMAL SALINE 1000 ML 1,000 ML IV PRN ×2 (17:06→19:48)
[2017-10-17 17:32] LABS: ABSOLUTE EOSINOPHILS # (AUTO) 0.1 10^3/uL (0.0-0.6); ABSOLUTE LYMPHOCYTES (AUTO) 1.8 10^3/uL (0.5-4.7); ABSOLUTE MONOCYTES (AUTO) 0.7 10^3/uL (0.1-1.4); ABSOLUTE NEUT (AUTO) 6.3 10^3/uL (1.7-8.2); BASOPHILS % (AUTO) 0.4 % (0-2); EOSINOPHILS % (AUTO) 1.6 % (0-6); HEMOGLOBIN 12.3 g/dL (12.0-15.5); LYMPHOCYTES % (AUTO) 20.5 % (13-45); MEAN CORPUSCULAR HEMOGLOBIN 28.2 pg (27.0-33.4); MEAN CORPUSCULAR HGB CONC 33.2 g/dL (32.0-36.0); MEAN CORPUSCULAR VOLUME 85 fl (80-97); MONOCYTES % (AUTO) 7.4 % (3-13); PLATELET COUNT 232 10^3/uL (150-450); RED BLOOD COUNT 4.35 10^6/uL (3.72-5.28); RED CELL DISTRIBUTION WIDTH 14.8 % (11.5-14.0); SEGMENTED NEUTROPHILS % (AUTO) 70.1 % (42-78); TOTAL CELLS COUNTED % (AUTO) 100 %
[2017-10-17 17:40] LABS: INTERNATIONAL RATION (INR) 0.91; PROTHROMBIN TIME 12.9 SEC (11.4-15.4)
[2017-10-17 17:41] LABS: PARTIAL THROMBOPLASTIN TIME 26.4 SEC (23.5-35.8)
[2017-10-17 17:59] LABS: ALANINE AMINOTRANSFERASE 33 U/L (9-52); ALBUMIN 4.1 g/dL (3.5-5.0); ALKALINE PHOSPHATASE 102 U/L (38-126); ANION GAP 13 (5-19); ASPARTATE AMINO TRANSFERASE 22 U/L (14-36); BILIRUBIN,DIRECT 0.3 mg/dL (0.0-0.4); BILIRUBIN,TOTAL 0.8 mg/dL (0.2-1.3); BLOOD UREA NITROGEN 14 mg/dL (7-20); CALCIUM 9.8 mg/dL (8.4-10.2); CARBON DIOXIDE 26 mmol/L (22-30); CHLORIDE 102 mmol/L (98-107); CREATINE KINASE 44 U/L (30-135); GLUCOSE 107 mg/dL (75-110); LIPASE 165.5 U/L (23-300); POTASSIUM 4.3 mmol/L (3.6-5.0); SODIUM 141.2 mmol/L (137-145); TOTAL PROTEIN 6.7 g/dL (6.3-8.2)
[2017-10-17 18:00] LABS: ACETAMINOPHEN < 10 ug/mL (10-30); ALCOHOL < 10 mg/dL (NONE DETECTED)
--- NOTE | 2017-10-17 18:54 | EKG REPORT ---
SEVERITY:- NORMAL ECG - SINUS RHYTHM : Confirmed by: Tee Valera MD 17-Oct-2017 18:53:38
--- NOTE | 2017-10-17 19:24 | ER Document Report ---
ED Fall - General Mode of Arrival: Ambulatory Information source: Patient TRAVEL OUTSIDE OF THE [place] IN LAST 30 DAYS: No <ROXANNE DAVID - Last Filed: 10/18/17 00:22> <LIBERTAD NOWAK - Last Filed: 10/18/17 02:46> - General Chief Complaint: Fall Stated Complaint: FALL/PAIN ALL OVER Time Seen by Provider: 10/17/17 15:30 Notes: Patient is a 62 year old female that presents to the emergency department today with complaints of a fall that occurred prior to arrival. Patient states that she felt "dizzy and disoriented" and she fell twice. Patient states she has had this happen in the past when she has had a UTI. Patient states she felt "shaky" , she had a BGL of 378. Patient states her urine is malodorous. Patient denies cough, fevers, abdominal pain, shortness of breath, chest pain, nausea, or vomiting. (ROXANNE DAVID) - Related data Allergies/Adverse Reactions: latex [Latex] Allergy (Verified 10/17/17 13:33) Past Medical History - General Information source: Patient - Social History Smoking Status: Unknown if Ever Smoked Cigarette use (# per day): No Frequency of alcohol use: None Drug Abuse: None Lives with: Family Family History: Reviewed & Not Pertinent Patient has suicidal ideation: No Patient has homicidal ideation: No - Past Medical History Cardiac Medical History: Reports: Hx Congestive Heart Failure, Hx Coronary Artery Disease, Hx Heart Attack, Hx Hypercholesterolemia, Hx Hypertension, Hx Heart Murmur Pulmonary Medical History: Reports: Hx Bronchitis, Hx COPD Endocrine Medical History: Reports: Hx Diabetes Mellitus Type 2 GI Medical History: Reports: Hx Gastroesophageal Reflux Disease Musculoskeltal Medical History: Reports Hx Arthritis - osteo Psychiatric Medical History: Reports: Hx Depression Past Surgical History: Reports: Hx Appendectomy, Hx Cardiac Catheterization - x1 with 1 stent, Hx Cholecystectomy, Hx Coronary Artery Bypass Graft, Hx Coronary Stent, Hx Orthopedic Surgery - cervical spinal surgery, degenerative disc disease, right shoulder scar tis, Other - c spine surgery - Immunizations Hx Diphtheria, Pertussis, Tetanus Vaccination: Yes Hx Pneumococcal Vaccination: 10/07/09 <ROXANNE DAVID - Last Filed: 10/18/17 00:22> Review of Systems - Review of Systems Constitutional: See HPI, Other - falls. denies: Fever EENT: No symptoms reported Cardiovascular: See HPI, Dizziness. denies: Chest pain Respiratory: denies: Cough, Short of breath Gastrointestinal: denies: Abdominal pain, Nausea, Vomiting Genitourinary: See HPI, Other - urine odor Female Genitourinary: No symptoms reported Musculoskeletal: No symptoms reported Skin: No symptoms reported Hematologic/Lymphatic: No symptoms reported Neurological/Psychological: No symptoms reported -: Yes All other systems reviewed and negative <ROXANNE DAVID - Last Filed: 10/18/17 00:22> Physical Exam - Vital signs Interpretation: Bradycardic - General General appearance: Alert In distress: Mild - Appears uncomfortable - HEENT Head: Normocephalic, Atraumatic Extraocular movements intact: Yes Mucous membranes: Dry Pharynx: Normal - Respiratory Respiratory status: No respiratory distress Breath sounds: Normal - Cardiovascular Rhythm: Regular, Bradycardia - Abdominal Inspection: Normal Tenderness: Nontender - Back Back: Normal, Nontender - Extremities General upper extremity: Normal ROM, Other - Bruises bilateral upper extremities General lower extremity: Normal ROM, Normal weight bearing - Neurological Cognition: Confused Joni Coma Scale Eye Opening: Spontaneous Neligh Coma Scale Verbal: Confused Speech: Normal - Psychological Associated symptoms: Normal affect, Normal mood - Skin Skin Temperature: Warm Skin Moisture: Dry Skin Color: Normal <LIBERTAD NOWAK - Last Filed: 10/18/17 02:46> - Vital signs Vitals: Temp Pulse Resp BP Pulse Ox 97.5 F 63 18 112/58 L 96 10/17/17 13:58 10/17/17 13:58 10/17/17 13:58 10/17/17 13:58 10/17/17 13:58 Course - Laboratory Result Diagrams: 10/17/17 17:10 10/17/17 17:10 <ROXANNE DAVID - Last Filed: 10/18/17 00:22> - Laboratory Result Diagrams: 10/17/17 17:10 10/17/17 17:10 - Diagnostic Test Radiology reviewed: Reports reviewed - Consults Dr. Pineda Time consulted: 10:40 - will admit Dr. Peguero Time consulted: 10:45 Consulted provider: will see as inpatient <LIBERTAD NOWAK - Last Filed: 10/18/17 02:46> - Re-evaluation Re-evalutation: 10/17/17 23:00 Patient is a 62-year-old female who is brought in for syncope 2 at home. Patient did feel lightheaded. Patient's blood sugar at home was in the 300s. Blood work here within normal limits. Patient does have urine concerning for UTI. Patient was having some mild left pelvic tenderness to palpation. CT is not showing any acute abnormalities of her right genitourinary system except for a distended bladder. Patient was discussed with Dr. Pineda who will admit the patient. Patient is much improved after fluids. Blood and urine cultures have been sent and the patient has been given ceftriaxone here in the emergency department. Patient and family state that this is a recurrent issue for the patient. She has not seen urology. I spoke with Dr. Peguero who will see the patient in consult during this hospital admission. Recommends doing bladder scan, postvoid residual. He will see the patient in the morning. Patient has been urinating in the department and walking to the bathroom. Confusion has resolved at this time 10/18/17 00:20 Postvoid residual 700-900 cc. Roque catheter placed. (LIBERTAD NOWAK) - Vital Signs Vital signs: Temp Pulse Resp BP Pulse Ox 97.6 F 69 18 128/52 H 96 10/18/17 01:01 10/18/17 01:01 10/18/17 01:01 10/18/17 01:01 10/18/17 01:01 - Laboratory Laboratory results interpreted by me: 10/17/17 10/17/17 10/17/17 16:00 17:10 17:10 RDW 14.8 H Est GFR (Non-Af Amer) 56 L Urine Glucose (UA) >=500 H Urine Urobilinogen 2.0 H Ur Leukocyte Esterase SMALL H Acetaminophen < 10 L Critical Care Note - Critical Care Note Total time excluding time spent on procedures (mins): 35 - Evaluation and management of altered mental status, hyperglycemia, syncope, multiple re- evaluations, consultation with specialist, coordination of admission, counseling of patient and family <LIBERTAD NOWAK - Last Filed: 10/18/17 02:46> Discharge <ROXANNE DAVID - Last Filed: 10/18/17 00:22> - Discharge Admitting Provider: [facility] Unit Admitted: Telemetry <LIBERTAD NOWAK - Last Filed: 10/18/17 02:46> - Discharge Clinical Impression: Encephalopathy Syncope Qualifiers: Syncope type: unspecified Qualified Code(s): R55 - Syncope and collapse UTI (urinary tract infection) Qualifiers: Urinary tract infection type: site unspecified Hematuria presence: without hematuria Qualified Code(s): N39.0 - Urinary tract infection, site not specified Condition: Stable Disposition: ADMITTED INPATIENT Scribe Attestation: 10/18/17 02:46 I personally performed the services described in the documentation, reviewed and edited the documentation which was dictated to the scribe in my presence, and it accurately records my words and actions. (LIBERTAD NOWAK) Scribe Documentation - Scribe Written by Scribe:: Michelle Barrios, 10/18/2017 0023 acting as scribe for :: Jon <ROXANNE DAVID - Last Filed: 10/18/17 00:22>
[2017-10-17] MEDS ORDERED: CEFTRIAXONE 1 GM/D5W RTU 1 GM/50 ML RTUPB IV ONE (19:30)
[2017-10-17] MEDS ORDERED: CEFTRIAXONE SODIUM 1,000 MG in DEXTROSE 5%-WATER 50 ML IV ONE (20:00)
--- NOTE | 2017-10-17 20:06 | RADIOLOGY REPORT (SQ) ---
EXAM DESCRIPTION: CT LTD RENAL STONE PROTOCOL ON COMPLETED DATE/TIME: 10/17/2017 7:55 pm REASON FOR STUDY: pain L pelvis, fall COMPARISON: None. TECHNIQUE: CT scan of the abdomen and pelvis performed without intravenous or oral contrast. Images reviewed with lung, soft tissue, and bone windows. Reconstructed coronal and sagittal MPR images revi ewed. All images stored on PACS. All CT scanners at this facility use dose modulation, iterative reconstruction, and/or weight based d osing when appropriate to reduce radiation dose to as low as reasonably achievable (ALARA). [facility]: Dose Right [facility]: CareDose [facility]: Dose Right [facility]: Teradose 4D [facility]: Smart [email or web address] RADIATION DOSE: CT Rad equipment meets quality standard of care and radiation dose reduction techniq ues were employed. CTDIvol: 13.5 mGy. DLP: 728 mGy-cm.mGy. LIMITATIONS: None. FINDINGS: LOWER CHEST: No significant findings. No nodules or infiltrates. NON-CONTRASTED LIVER, SPLEEN, ADRENALS: Evaluation limited by lack of IV contrast. No identified sign ificant masses. PANCREAS: No masses. No peripancreatic inflammatory changes. GALLBLADDER: Surgically absent. RIGHT KIDNEY AND URETER: No suspicious masses. Assessment limited by lack of IV contrast. No signif icant calcifications. No hydronephrosis or hydroureter. LEFT KIDNEY AND URETER: No suspicious masses. Assessment limited by lack of IV contrast. No signifi cant calcifications. No hydronephrosis or hydroureter. AORTA AND RETROPERITONEUM: No aneurysm. No retroperitoneal masses or adenopathy. BOWEL AND PERITONEAL CAVITY: No obvious masses or inflammatory changes. No free fluid. APPENDIX: Surgically absent. PELVIS, BLADDER, AND ABDOMINAL WALL:The bladder is distended nearly to the level of the mellitus. BONES: No significant findings. OTHER: No other significant finding. IMPRESSION: Bladder distention. COMMENT: Quality ID # 436: Final reports with documentation of one or more dose reduction techniques (e.g., Automated exposure control, adjustment of the mA and/or kV according to patient size, use of iterative reconstruction technique) TECHNICAL DOCUMENTATION: JOB ID: [id number] [employer]- All Rights Reserved
[2017-10-18] MEDS ORDERED: ACETAMINOPHEN 325 MG TABLET PO ONE (00:20)
[2017-10-18] MEDS ORDERED: GLUCAGON,HUMAN RECOMB 1 MG INJ IM PRN (02:35)
[2017-10-18] MEDS ORDERED: DEXTROSE 50%-WATER SYRINGE 12.5 GM/25 ML DOSE IV PRN (02:35)
[2017-10-18] MEDS ORDERED: DEXTROSE 40% GEL 15 GM TUBE X 2 PO PRN (02:35)
[2017-10-18] MEDS ORDERED: DEXTROSE 40% GEL 15 GM TUBE PO PRN (02:35)
[2017-10-18] MEDS ORDERED: DEXTROSE 50%-WATER SYRINGE 25 GM/50 ML DOSE IV PRN (02:35)
[2017-10-18] MEDS: INSULIN LISPRO 100 UNIT/ML 3 ML VIAL SUBCUT PRN ×4 (07:33→22:42)
[2017-10-18] MEDS ORDERED: NORMAL SALINE 1000 ML 1,000 ML IV PRN (07:52)
[2017-10-18] MEDS ORDERED: CEFTRIAXONE 1 GM/D5W RTU 1 GM/50 ML RTUPB IV SCH (08:00)
[2017-10-18 09:46] LABS: INTERNATIONAL RATION (INR) 0.87; PROTHROMBIN TIME 12.5 SEC (11.4-15.4)
[2017-10-18 10:05] LABS: LIPASE 183.7 U/L (23-300)
[2017-10-18 10:22] LABS: CREATINE KINASE MB < 0.22 ng/mL (<4.55); TROPONIN I < 0.012 ng/mL
[2017-10-18 10:30] LABS: FREE T4 (FREE THYROXINE) 1.4 ng/dL (0.78-2.19)
[2017-10-18] MEDS: ENOXAPARIN SODIUM INJ 40 MG/0.4 ML DISP.SYRIN SUBCUT SCH (10:39)
[2017-10-18 10:44] LABS: THYROID STIMULATING HORMONE 1.17 uIU/mL (0.47-4.68)
--- NOTE | 2017-10-18 13:06 | PDOC CONSULTATION ---
History of Present Illness Admission Date/PCP: 10/17/17 22:53 JESÚS BARBOUR MD History of Present Illness: STEPHANIE POP is a 62 year old female Who presented to the emergency room on 07/17/2018 with fever and dysuria. She was diagnosed with a febrile urinary tract infection and admitted for evaluation and treatment. A CT scan was obtained in the emergency department which did not show any perinephric or ureteral stranding. No stones were identified. No obstruction was identified. The bladder was found to be distended after urinating several times. The patient admits to frequent recurrent urinary tract infections for the last several months. These have always been treated as an outpatient with antibiotics. No effort at diagnosis for further evaluation was undertaken. She also admits to having difficulty urinating with slow stream and feeling that she is not emptying. This is been going on for a number of months as well. Past Medical History Cardiac Medical History: Reports: Congestive Heart Failure, Coronary Artery Disease, Myocardial Infarction, Hyperlipidema, Hypertension, Heart Murmur Pulmonary Medical History: Reports: Bronchitis, Chronic Obstructive Pulmonary Disease (COPD) Denies: Tuberculosis Endocrine Medical History: Reports: Diabetes Mellitus Type 1, Diabetes Mellitus Type 2 GI Medical History: Reports: Gastroesophageal Reflux Disease Musculoskeltal Medical History: Reports: Arthritis - osteo Psychiatric Medical History: Reports: Depression Past Surgical History Past Surgical History: Reports: Appendectomy, Cardiac Catheterization - x1 with 1 stent, Cholecystectomy, Coronary Artery Bypass Graft, Coronary Stent, Orthopedic Surgery - cervical spinal surgery, degenerative disc disease, right shoulder scar tis, Other - c spine surgery Social History Lives with: Family Smoking Status: Unknown if Ever Smoked Frequency of Alcohol Use: Rare Hx Recreational Drug Use: No Hx Prescription Drug Abuse: No - Advance Directive Resuscitation Status: Full Code Family History Family History: Reviewed & Not Pertinent Parental Family History Reviewed: No Children Family History Reviewed: No Sibling(s) Family History Reviewed.: No Medication/Allergy Home Medications: Aspirin [Aspirin 81 mg Chewable Tablet] 81 mg PO DAILY 10/18/17 Atorvastatin Calcium [Lipitor 80 mg Tablet] 80 mg PO QHS 10/18/17 Fluticasone Propionate [Flonase Nasal [place] 50 Mcg/[place] 16 gm] 1 spray NASL DAILYP PRN 10/18/17 Insulin Aspart [Novolog Insulin (Aspart) 100 unit/mL] 0 unit SQ .SLIDING SCALE 10/18/17 Insulin Detemir [Levemir Flextouch] 10 unit SQ DAILY 10/18/17 Insulin Detemir [Levemir Flextouch] 20 unit SQ QHS 10/18/17 Isosorbide Mononitrate [Imdur 60 mg Tablet.er] 180 mg PO DAILY 10/18/17 Liraglutide [Victoza 2-Horacio] 1.2 mg SQ DAILY 10/18/17 Metoprolol Succinate [Toprol Xl 50 mg Tab.sr] 50 mg PO DAILY 10/18/17 Nitroglycerin [Nitrostat] 0.4 mg SL Q5MP PRN 10/18/17 Omeprazole 20 mg PO DAILY 10/18/17 Pregabalin [Lyrica] 200 mg PO Q12 10/18/17 Ramipril [Altace 10 mg Capsule] 10 mg PO DAILY 10/18/17 Ranolazine [Ranexa] 1,000 mg PO Q12 10/18/17 Sertraline HCl [Zoloft] 25 mg PO DAILY 10/18/17 Sertraline HCl [Zoloft] 100 mg PO DAILY 10/18/17 Solifenacin Succinate [Vesicare] 5 mg PO DAILY 10/18/17 Temazepam [Restoril 7.5 mg Capsule] 7.5 mg PO QHS 10/18/17 Ticagrelor [Brilinta 90 mg Tablet] 90 mg PO Q12 10/18/17 Allergies/Adverse Reactions: latex [Latex] Allergy (Verified 10/17/17 13:33) Physical Exam Vital Signs: Temp Pulse Resp BP Pulse Ox 97.5 F 65 20 134/51 H 97 10/18/17 07:47 10/18/17 07:47 10/18/17 07:47 10/18/17 07:47 10/18/17 07:47 Intake & Output 10/17/17 10/18/17 10/19/17 06:59 06:59 06:59 Intake Total 500 Output Total 850 Balance -350 Results Laboratory Results: 10/18/17 10/18/17 10/18/17 09:13 09:13 09:13 Ammonia < 8.7 L Amylase 44 Lipase 183.7 TSH 1.17 Free T4 1.40 10/18/17 10/18/17 09:13 09:13 Creatine Kinase 43 CK-MB (CK-2) < 0.22 Troponin I < 0.012 Impressions: Head CT 10/17/17 15:39 IMPRESSION: NORMAL BRAIN CT WITHOUT CONTRAST. EVIDENCE OF ACUTE STROKE: NO. Limited or Localized CT 10/17/17 19:31 IMPRESSION: Bladder distention. Assessment & Plan - Diagnosis (1) UTI (urinary tract infection) Qualifiers: Urinary tract infection type: acute cystitis Hematuria presence: without hematuria Qualified Code(s): N30.00 - Acute cystitis without hematuria Is this a current diagnosis for this admission?: Yes Plan: Intravenous antibiotics until afebrile and the patient is feeling better. She should then be switched to oral antibiotics which are effective against the results of her culture. Would suggest at least a 10 day course of antibiotics at this time. (2) Incomplete bladder emptying Is this a current diagnosis for this admission?: Yes Plan: This patient currently has a Roque catheter in place. That should remain in place until it is certain that she can empty. She should be started on tamsulosin 0.4 mg daily. When she has had approximately 5 days of the tamsulosin, the Roque catheter can be removed and a voiding trial undertaken. She may need additional workup, medications, and/or treatment for this depending upon how she responds to the antibiotics and to the tamsulosin. Follow-up should be made at the urology office here for the next available for a urologist.
[2017-10-18 17:27] LABS: CREATINE KINASE MB < 0.22 ng/mL (<4.55); TROPONIN I < 0.012 ng/mL
[2017-10-18] MEDS ORDERED: (PENDING PHARMACY ID) (Solifenacin Succinate [Vesicare] 5 MG) PO SCH (17:30)
[2017-10-18] MEDS ORDERED: INSULIN DETEMIR 100 UNIT/ML 3 ML PEN SUBCUT SCH ×2 (17:30→22:00)
[2017-10-18] MEDS ORDERED: (PENDING PHARMACY ID) (Sertraline Hcl [Zoloft] 25 MG) PO SCH (17:30)
[2017-10-18] MEDS ORDERED: FLUTICASONE NASAL SPRAY 50 MCG/SPRY 120 SPRAY/16 GM NASL PRN (17:30)
[2017-10-18] MEDS ORDERED: (PENDING PHARMACY ID) (Liraglutide [Victoza 2-Pak] 1.2 MG) SQ SCH (17:30)
[2017-10-18] MEDS ORDERED: NITROGLYCERIN 0.4 MG/TAB 25 TAB/BOTTLE SL PRN (17:30)
[2017-10-18] MEDS ORDERED: ASPIRIN 81 MG TABLET, CHEWABLE PO SCH (17:30)
[2017-10-18] MEDS ORDERED: (PENDING PHARMACY ID) (Pregabalin [Lyrica] 200 MG) PO SCH (17:30)
[2017-10-18] MEDS ORDERED: (PENDING PHARMACY ID) (Ranolazine [Ranexa] 1,000 MG) PO SCH (17:30)
[2017-10-18] MEDS ORDERED: CEFTRIAXONE SODIUM 1,000 MG in DEXTROSE 5%-WATER 50 ML IV SCH (18:00)
[2017-10-18] MEDS ORDERED: ISOSORBIDE MONONITRATE 60 MG TAB.ER.24H PO SCH (18:00)
[2017-10-18] MEDS ORDERED: TAMSULOSIN HCL 0.4 MG CAP.SR.24H PO SCH (18:00)
[2017-10-18] MEDS ORDERED: ASPIRIN 81 MG TABLET, CHEWABLE PO ONE (20:00)
[2017-10-18] MEDS ORDERED: METOPROLOL SUCCINATE 50 MG TAB.SR.24H PO ONE (20:00)
[2017-10-18 21:22] LABS: CREATINE KINASE MB < 0.22 ng/mL (<4.55); TROPONIN I < 0.012 ng/mL
[2017-10-18] MEDS ORDERED: ATORVASTATIN CALCIUM 80 MG TABLET PO SCH (22:00)
[2017-10-18] MEDS ORDERED: TEMAZEPAM 7.5 MG CAPSULE PO SCH (22:00)
[2017-10-18] MEDS ORDERED: RAMIPRIL 10 MG CAPSULE PO SCH (22:00)
[2017-10-18] MEDS: PREGABALIN 100 MG CAPSULE PO SCH (22:35)
[2017-10-18] MEDS: RANOLAZINE 500 MG TAB.SR.12H PO SCH (22:35)
[2017-10-18] MEDS: TICAGRELOR 90 MG TABLET PO SCH (22:35)
[2017-10-18] MEDS: TOLTERODINE TARTRATE 1 MG TABLET PO SCH (22:35)
--- NOTE | 2017-10-18 23:16 | PDOC H&P ---
History of Present Illness Admission Date/PCP: 10/18/17 02:08 JESÚS BARBOUR MD History of Present Illness: Patient came to the emergency room for evaluation of fall, urinary tract infection. She stated that she had episode of syncope in the past that was evaluated extensively by her vulnerability researcher in [place]. Both there was no specific etiology that was identified as the cause of the syncope that she had in the past. She told me that when she fell last night she did not actually pass out/lose consciousness though she could not recall, there was some evidence of disorientation to time and place. In the emergency room she was evaluated, a CAT scan of the abdomen and pelvis was done there was no acute pathology identified yesterday for urinary bladder retention of urine, a Roque catheter was inserted. The emergency room physician felt patient needed to be admitted for evaluation because of the syncope and the fact that she has urinary retention Past Medical History Cardiac Medical History: Reports: Coronary Artery Disease, Myocardial Infarction , Hyperlipidema, Hypertension, Heart Murmur Pulmonary Medical History: Reports: Bronchitis, Chronic Obstructive Pulmonary Disease (COPD) Endocrine Medical History: Reports: Diabetes Mellitus Type 2 GI Medical History: Reports: Gastroesophageal Reflux Disease Musculoskeltal Medical History: Reports: Arthritis - osteo Psychiatric Medical History: Reports: Depression Past Surgical History Past Surgical History: Reports: Appendectomy, Cardiac Catheterization - x1 with 1 stent, Cholecystectomy, Coronary Artery Bypass Graft, Coronary Stent, Orthopedic Surgery - cervical spinal surgery, degenerative disc disease, right shoulder scar tis, Other - c spine surgery Social History Lives with: Family Smoking Status: Unknown if Ever Smoked Frequency of Alcohol Use: Rare Hx Recreational Drug Use: No Hx Prescription Drug Abuse: No - Advance Directive Resuscitation Status: Full Code Family History Family History: Reviewed & Not Pertinent Parental Family History Reviewed: Yes Children Family History Reviewed: Yes Sibling(s) Family History Reviewed.: Yes Medication/Allergy Home Medications: Aspirin [Aspirin 81 mg Chewable Tablet] 81 mg PO DAILY 10/18/17 Atorvastatin Calcium [Lipitor 80 mg Tablet] 80 mg PO QHS 10/18/17 Fluticasone Propionate [Flonase Nasal [place] 50 Mcg/[place] 16 gm] 1 spray NASL DAILYP PRN 10/18/17 Insulin Aspart [Novolog Insulin (Aspart) 100 unit/mL] 0 unit SQ .SLIDING SCALE 10/18/17 Insulin Detemir [Levemir Flextouch] 10 unit SQ DAILY 10/18/17 Insulin Detemir [Levemir Flextouch] 20 unit SQ QHS 10/18/17 Isosorbide Mononitrate [Imdur 60 mg Tablet.er] 180 mg PO DAILY 10/18/17 Liraglutide [Victoza 2-Horacio] 1.2 mg SQ DAILY 10/18/17 Metoprolol Succinate [Toprol Xl 50 mg Tab.sr] 50 mg PO DAILY 10/18/17 Nitroglycerin [Nitrostat] 0.4 mg SL Q5MP PRN 10/18/17 Omeprazole 20 mg PO DAILY 10/18/17 Pregabalin [Lyrica] 200 mg PO Q12 10/18/17 Ramipril [Altace 10 mg Capsule] 10 mg PO DAILY 10/18/17 Ranolazine [Ranexa] 1,000 mg PO Q12 10/18/17 Sertraline HCl [Zoloft] 25 mg PO DAILY 10/18/17 Sertraline HCl [Zoloft] 100 mg PO DAILY 10/18/17 Solifenacin Succinate [Vesicare] 5 mg PO DAILY 10/18/17 Temazepam [Restoril 7.5 mg Capsule] 7.5 mg PO QHS 10/18/17 Ticagrelor [Brilinta 90 mg Tablet] 90 mg PO Q12 10/18/17 Allergies/Adverse Reactions: latex [Latex] Allergy (Verified 10/17/17 13:33) Review of Systems Constitutional: PRESENT: chills Eyes: ABSENT: visual disturbances Ears: ABSENT: hearing changes Cardiovascular: ABSENT: chest pain, dyspnea on exertion, edema, orthropnea, palpitations Respiratory: ABSENT: cough, hemoptysis Gastrointestinal: ABSENT: abdominal pain, constipation, diarrhea, hematemesis, hematochezia, nausea, vomiting Genitourinary: ABSENT: dysuria, hematuria Musculoskeletal: ABSENT: joint swelling Integumentary: ABSENT: rash, wounds Neurological: PRESENT: syncope Psychiatric: ABSENT: anxiety, depression, homidical ideation, suicidal ideation Endocrine: ABSENT: cold intolerance, heat intolerance, menstrual abnormalities, polydipsia, polyuria Hematologic/Lymphatic: ABSENT: easy bleeding, easy bruising, lymphadenopathy Physical Exam Vital Signs: Temp Pulse Resp BP Pulse Ox 98.2 F 59 L 19 130/66 H 99 10/18/17 19:42 10/18/17 19:42 10/18/17 19:42 10/18/17 19:42 10/18/17 19:42 Intake & Output 10/17/17 10/18/17 10/19/17 06:59 06:59 06:59 Intake Total 500 1100 Output Total 850 1600 Balance -350 -500 General appearance: PRESENT: no acute distress, well-developed, well-nourished Head exam: PRESENT: atraumatic, normocephalic Eye exam: PRESENT: conjunctiva pink, EOMI, PERRLA Ear exam: PRESENT: normal external ear exam Mouth exam: PRESENT: moist, tongue midline Neck exam: PRESENT: full ROM Respiratory exam: PRESENT: clear to auscultation kerri Cardiovascular exam: PRESENT: RRR, +S1, +S2 Pulses: PRESENT: normal dorsalis pedis pul, +2 pedal pulses bilateral Vascular exam: PRESENT: normal capillary refill GI/Abdominal exam: PRESENT: normal bowel sounds, soft Rectal exam: PRESENT: deferred Neurological exam: PRESENT: alert, awake, oriented to person, oriented to place , oriented to time, oriented to situation, CN II-XII grossly intact Psychiatric exam: PRESENT: appropriate affect, normal mood Skin exam: PRESENT: dry, intact, warm. ABSENT: cyanosis, rash Results Laboratory Results: 10/18/17 10/18/17 10/18/17 09:13 09:13 09:13 Ammonia < 8.7 L Amylase 44 Lipase 183.7 TSH 1.17 Free T4 1.40 10/18/17 10/18/17 10/18/17 09:13 09:13 15:35 Creatine Kinase 43 37 CK-MB (CK-2) < 0.22 Troponin I < 0.012 10/18/17 10/18/17 10/18/17 15:35 20:30 20:30 Creatine Kinase 41 CK-MB (CK-2) < 0.22 < 0.22 Troponin I < 0.012 < 0.012 Impressions: Head CT 10/17/17 15:39 IMPRESSION: NORMAL BRAIN CT WITHOUT CONTRAST. EVIDENCE OF ACUTE STROKE: NO. Limited or Localized CT 10/17/17 19:31 IMPRESSION: Bladder distention. Assessment & Plan - Diagnosis (1) UTI (urinary tract infection) Qualifiers: Urinary tract infection type: acute cystitis Hematuria presence: without hematuria Qualified Code(s): N30.00 - Acute cystitis without hematuria Is this a current diagnosis for this admission?: Yes Plan: Start antibiotic (2) Syncope Qualifiers: Syncope type: unspecified Qualified Code(s): R55 - Syncope and collapse Is this a current diagnosis for this admission?: Yes (3) Coronary artery disease Qualifiers: Coronary Disease-Associated Artery/Lesion type: unspecified vessel or lesion type [place] vs. transplanted heart: [place] heart Associated angina: without angina Qualified Code(s): I25.10 - Atherosclerotic heart disease of [place] coronary artery without angina pectoris
[2017-10-19 05:13] LABS: ABSOLUTE EOSINOPHILS # (AUTO) 0.2 10^3/uL (0.0-0.6); ABSOLUTE LYMPHOCYTES (AUTO) 2.1 10^3/uL (0.5-4.7); ABSOLUTE MONOCYTES (AUTO) 0.4 10^3/uL (0.1-1.4); ABSOLUTE NEUT (AUTO) 2.4 10^3/uL (1.7-8.2); BASOPHILS % (AUTO) 0.7 % (0-2); EOSINOPHILS % (AUTO) 3.5 % (0-6); HEMATOCRIT 35.5 % (36.0-47.0); HEMOGLOBIN 11.9 g/dL (12.0-15.5); LYMPHOCYTES % (AUTO) 40.4 % (13-45); MEAN CORPUSCULAR HEMOGLOBIN 28.2 pg (27.0-33.4); MEAN CORPUSCULAR HGB CONC 33.4 g/dL (32.0-36.0); MEAN CORPUSCULAR VOLUME 84 fl (80-97); MONOCYTES % (AUTO) 8.2 % (3-13); PLATELET COUNT 167 10^3/uL (150-450); RED BLOOD COUNT 4.21 10^6/uL (3.72-5.28); RED CELL DISTRIBUTION WIDTH 15.2 % (11.5-14.0); SEGMENTED NEUTROPHILS % (AUTO) 47.2 % (42-78); TOTAL CELLS COUNTED % (AUTO) 100 %; WHITE BLOOD COUNT 5.1 10^3/uL (4.0-10.5)
[2017-10-19 05:56] LABS: ALANINE AMINOTRANSFERASE 26 U/L (9-52); ALBUMIN 3.1 g/dL (3.5-5.0); ALKALINE PHOSPHATASE 75 U/L (38-126); ANION GAP 11 (5-19); ASPARTATE AMINO TRANSFERASE 17 U/L (14-36); BILIRUBIN,DIRECT 0.3 mg/dL (0.0-0.4); BILIRUBIN,TOTAL 0.5 mg/dL (0.2-1.3); BLOOD UREA NITROGEN 15 mg/dL (7-20); CARBON DIOXIDE 23 mmol/L (22-30); CHLORIDE 109 mmol/L (98-107); CHOLESTEROL 116.78 mg/dL (0-200); GLUCOSE 71 mg/dL (75-110); POTASSIUM 3.4 mmol/L (3.6-5.0); SODIUM 142.5 mmol/L (137-145); TOTAL PROTEIN 5.4 g/dL (6.3-8.2); TRIGLYCERIDES 113 mg/dL (<150)
[2017-10-19] MEDS ORDERED: LANSOPRAZOLE 15 MG TAB.RAP.DR PO SCH (06:00)
[2017-10-19 06:09] LABS: DIRECT LDL 48 mg/dL (<100)
[2017-10-19] MEDS ORDERED: METOPROLOL SUCCINATE 50 MG TAB.SR.24H PO SCH (10:00)
[2017-10-19] MEDS ORDERED: SERTRALINE HCL 50 MG TABLET PO SCH ×3 (10:00)
[2017-10-19] MEDS ORDERED: ASPIRIN 81 MG TABLET, CHEWABLE PO SCH (10:00)
[2017-10-19] MEDS: PREGABALIN 100 MG CAPSULE PO SCH (10:01)
[2017-10-19] MEDS: ENOXAPARIN SODIUM INJ 40 MG/0.4 ML DISP.SYRIN SUBCUT SCH (10:01)
[2017-10-19] MEDS: TOLTERODINE TARTRATE 1 MG TABLET PO SCH (10:08)
[2017-10-19] MEDS: RANOLAZINE 500 MG TAB.SR.12H PO SCH (10:09)
[2017-10-19] MEDS: TICAGRELOR 90 MG TABLET PO SCH (10:09)
[2017-10-19] MEDS ORDERED: TRAMADOL HCL 50 MG TABLET PO PRN (10:44)
[2017-10-19] MEDS: INSULIN LISPRO 100 UNIT/ML 3 ML VIAL SUBCUT PRN (13:17)
[2017-10-19 14:21] VITALS: BP 110/63
--- NOTE | 2017-10-19 15:53 | PDOC DISCHARGE SUMMARY ---
General - Admit/Disc Date/PCP Admission Date/Primary Care Provider: 10/18/17 02:08 JESÚS BARBOUR MD Discharge Date: 10/19/17 - Discharge Diagnosis (1) UTI (urinary tract infection) Is this a current diagnosis for this admission?: Yes (2) Syncope Is this a current diagnosis for this admission?: Yes - Additional Information Resuscitation Status: Full Code Discharge Activity: Activity As Tolerated Prescriptions: Ciprofloxacin HCl [Cipro 500 mg Tablet] 500 mg PO BID #14 tablet Home Medications: Aspirin [Aspirin 81 mg Chewable Tablet] 81 mg PO DAILY 10/18/17 Atorvastatin Calcium [Lipitor 80 mg Tablet] 80 mg PO QHS 10/18/17 Fluticasone Propionate [Flonase Nasal [place] 50 Mcg/[place] 16 gm] 1 spray NASL DAILYP PRN 10/18/17 Insulin Aspart [Novolog Insulin (Aspart) 100 unit/mL] 0 unit SQ .SLIDING SCALE 10/18/17 Insulin Detemir [Levemir Flextouch] 10 unit SQ DAILY 10/18/17 Insulin Detemir [Levemir Flextouch] 20 unit SQ QHS 10/18/17 Isosorbide Mononitrate [Imdur 60 mg Tablet.er] 180 mg PO DAILY 10/18/17 Liraglutide [Victoza 2-Horacio] 1.2 mg SQ DAILY 10/18/17 Metoprolol Succinate [Toprol Xl 50 mg Tab.sr] 50 mg PO DAILY 10/18/17 Nitroglycerin [Nitrostat] 0.4 mg SL Q5MP PRN 10/18/17 Omeprazole 20 mg PO DAILY 10/18/17 Pregabalin [Lyrica] 200 mg PO Q12 10/18/17 Ramipril [Altace 10 mg Capsule] 10 mg PO DAILY 10/18/17 Ranolazine [Ranexa] 1,000 mg PO Q12 10/18/17 Sertraline HCl [Zoloft] 25 mg PO DAILY 10/18/17 Sertraline HCl [Zoloft] 100 mg PO DAILY 10/18/17 Solifenacin Succinate [Vesicare] 5 mg PO DAILY 10/18/17 Temazepam [Restoril 7.5 mg Capsule] 7.5 mg PO QHS 10/18/17 Ticagrelor [Brilinta 90 mg Tablet] 90 mg PO Q12 10/18/17 Ciprofloxacin HCl [Cipro 500 mg Tablet] 500 mg PO BID #14 tablet 10/19/17 History of Present Illness History of Present Illness: Patient came to the emergency room for evaluation of fall, urinary tract infection. She stated that she had episode of syncope in the past that was evaluated extensively by her mental health assistant in [place]. Both there was no specific etiology that was identified as the cause of the syncope that she had in the past. She told me that when she fell last night she did not actually pass out/lose consciousness though she could not recall, there was some evidence of disorientation to time and place. In the emergency room she was evaluated, a CAT scan of the abdomen and pelvis was done there was no acute pathology identified yesterday for urinary bladder retention of urine, a Roque catheter was inserted. The emergency room physician felt patient needed to be admitted for evaluation because of the syncope and the fact that she has urinary retention Hospital Course Hospital Course: Patient was admitted for the management of urinary tract infection, history of recurrent syncope, she was seen by urologist , the plan is to follow outpatient. Physical Exam Vital Signs: Temp Pulse Resp BP Pulse Ox 97.5 F 59 L 18 110/63 100 10/19/17 12:13 10/19/17 14:00 10/19/17 12:13 10/19/17 12:13 10/19/17 12:13 Intake & Output 10/18/17 10/19/17 10/20/17 06:59 06:59 06:59 Intake Total 500 2922 Output Total 850 3050 Balance -350 -128 Weight 93.7 kg General appearance: PRESENT: no acute distress Head exam: PRESENT: atraumatic, normocephalic Eye exam: PRESENT: PERRLA Mouth exam: PRESENT: moist, tongue midline Neck exam: PRESENT: full ROM Respiratory exam: PRESENT: clear to auscultation kerri Cardiovascular exam: PRESENT: RRR, +S1, +S2 Vascular exam: PRESENT: normal capillary refill GI/Abdominal exam: PRESENT: normal bowel sounds, soft Rectal exam: PRESENT: deferred Neurological exam: PRESENT: alert, CN II-XII grossly intact Psychiatric exam: PRESENT: appropriate affect, normal mood Skin exam: PRESENT: dry, intact, warm Results Laboratory Results: 10/19/17 04:19 10/19/17 04:19 10/19/17 10/19/17 04:19 04:19 WBC 5.1 RBC 4.21 Hgb 11.9 L Hct 35.5 L MCV 84 MCH 28.2 MCHC 33.4 RDW 15.2 H Plt Count 167 Seg Neutrophils % 47.2 Lymphocytes % 40.4 Monocytes % 8.2 Eosinophils % 3.5 Basophils % 0.7 Absolute Neutrophils 2.4 Absolute Lymphocytes 2.1 Absolute Monocytes 0.4 Absolute Eosinophils 0.2 Absolute Basophils 0.0 Sodium 142.5 Potassium 3.4 L Chloride 109 H Carbon Dioxide 23 Anion Gap 11 BUN 15 Creatinine 0.97 Est GFR ( Amer) > 60 Est GFR (Non-Af Amer) 58 L Glucose 71 L Calcium 9.0 Total Bilirubin 0.5 AST 17 ALT 26 Alkaline Phosphatase 75 Total Protein 5.4 L Albumin 3.1 L Triglycerides 113 Cholesterol 116.78 LDL Cholesterol Direct 48 VLDL Cholesterol 23.0 HDL Cholesterol 47 10/18/17 10/18/17 10/18/17 09:13 09:13 15:35 Creatine Kinase 43 37 CK-MB (CK-2) < 0.22 Troponin I < 0.012 10/18/17 10/18/17 10/18/17 15:35 20:30 20:30 Creatine Kinase 41 CK-MB (CK-2) < 0.22 < 0.22 Troponin I < 0.012 < 0.012 Impressions: Head CT 10/17/17 15:39 IMPRESSION: NORMAL BRAIN CT WITHOUT CONTRAST. EVIDENCE OF ACUTE STROKE: NO. Limited or Localized CT 10/17/17 19:31 IMPRESSION: Bladder distention.
== END 2017-10-19 16:55 | disposition home or self-care (01) ==
LOC: ER 13:31 → EH 22:53 → INTOOBSV 22:53 → 4N 10-18 01:38 → OBSVTOIN 10-18 02:08 → INTOOBSV 10-18 02:08
PROVIDERS: ADMIT Family Medicine; ATTEND Family Medicine
DX: N30.00 Acute cystitis without hematuria (principal); R55 Syncope and collapse; W19.XXXA Unspecified fall, initial encounter; R39.198 Other difficulties with micturition; R33.9 Retention of urine, unspecified; R00.1 Bradycardia, unspecified; R41.0 Disorientation, unspecified; I25.10 Atherosclerotic heart disease of native coronary artery without angina pectoris; E11.65 Type 2 diabetes mellitus with hyperglycemia; I11.0 Hypertensive heart disease with heart failure; I50.9 Heart failure, unspecified; I25.2 Old myocardial infarction; Z90.49 Acquired absence of other specified parts of digestive tract; K21.9 Gastro-esophageal reflux disease without esophagitis; R47.81 Slurred speech; S40.022A Contusion of left upper arm, initial encounter; S40.021A Contusion of right upper arm, initial encounter; M19.90 Unspecified osteoarthritis, unspecified site; Z79.899 Other long term (current) drug therapy; Z87.440 Personal history of urinary (tract) infections; Z95.5 Presence of coronary angioplasty implant and graft; Z98.890 Other specified postprocedural states; Z95.1 Presence of aortocoronary bypass graft; Z79.4 Long term (current) use of insulin
CPT/HCPCS: 93005; 99285; 96361; 96365; 36415 ×3; 87040; 87086; 84439; 82553; 82962 ×2; 80307 ×2; 82140; 82150; 82550 ×2; 83690 ×2; 84443; 85025 ×2; 85610 ×2; 85730; 80076; 80048; 80053; 81001; 84484 ×2; 83036; 80061; 70450; 76380; 93010; G0378 ×2; A9270 ×24; J1650 ×2; J0696 ×2; J7030 ×2; J1815; J3490

== ENCOUNTER 2017-10-28 05:43 | Emergency (ER) | payer MEDICARE, MEDICAID ==
[2017-10-28] MEDS ORDERED: NORMAL SALINE 1000 ML 1,000 ML IV ONE ×2 (06:32→07:58)
[2017-10-28 06:56] LABS: ABSOLUTE EOSINOPHILS # (AUTO) 0.1 10^3/uL (0.0-0.6); ABSOLUTE LYMPHOCYTES (AUTO) 1.5 10^3/uL (0.5-4.7); ABSOLUTE MONOCYTES (AUTO) 0.5 10^3/uL (0.1-1.4); ABSOLUTE NEUT (AUTO) 4.7 10^3/uL (1.7-8.2); BASOPHILS % (AUTO) 0.3 % (0-2); EOSINOPHILS % (AUTO) 1.7 % (0-6); HEMOGLOBIN 11.5 g/dL (12.0-15.5); LYMPHOCYTES % (AUTO) 21.3 % (13-45); MEAN CORPUSCULAR HEMOGLOBIN 28.2 pg (27.0-33.4); MEAN CORPUSCULAR VOLUME 86 fl (80-97); MONOCYTES % (AUTO) 7.9 % (3-13); PLATELET COUNT 193 10^3/uL (150-450); RED BLOOD COUNT 4.09 10^6/uL (3.72-5.28); RED CELL DISTRIBUTION WIDTH 15.5 % (11.5-14.0); SEGMENTED NEUTROPHILS % (AUTO) 68.8 % (42-78); TOTAL CELLS COUNTED % (AUTO) 100 %; WHITE BLOOD COUNT 6.9 10^3/uL (4.0-10.5)
[2017-10-28 06:59] LABS: ALANINE AMINOTRANSFERASE 27 U/L (9-52); ALBUMIN 3.8 g/dL (3.5-5.0); ALKALINE PHOSPHATASE 95 U/L (38-126); ANION GAP 10 (5-19); ASPARTATE AMINO TRANSFERASE 25 U/L (14-36); BILIRUBIN,DIRECT 0.3 mg/dL (0.0-0.4); BILIRUBIN,TOTAL 0.9 mg/dL (0.2-1.3); BLOOD UREA NITROGEN 21 mg/dL (7-20); CALCIUM 9.2 mg/dL (8.4-10.2); CARBON DIOXIDE 25 mmol/L (22-30); CHLORIDE 105 mmol/L (98-107); CREATINE KINASE 45 U/L (30-135); GLUCOSE 225 mg/dL (75-110); POTASSIUM 4.5 mmol/L (3.6-5.0); SODIUM 139.7 mmol/L (137-145); TOTAL PROTEIN 6.5 g/dL (6.3-8.2)
[2017-10-28 07:10] LABS: CREATINE KINASE MB 0.35 ng/mL (<4.55); TROPONIN I < 0.012 ng/mL
[2017-10-28] MEDS ORDERED: MORPHINE SULFATE 10 MG/ML INJ IV ONE ×3 (07:36→11:13)
[2017-10-28] MEDS ORDERED: ONDANSETRON HCL INJ/PF 4 MG/2 ML SDV IV ONE (07:36)
--- NOTE | 2017-10-28 08:30 | RADIOLOGY REPORT (SQ) ---
EXAM DESCRIPTION: SHOULDER RIGHT 2 OR MORE VIEWS COMPLETED DATE/TIME: 10/28/2017 6:43 am REASON FOR STUDY: right shoulder pain COMPARISON: None. NUMBER OF VIEWS: Two views. TECHNIQUE: AP and Y view images acquired of the right shoulder. LIMITATIONS: None. FINDINGS: MINERALIZATION: Osteopenic BONES: Acute transverse comminuted fracture right proximal humeral metaphysis through the surgical ne ck. There may be fracture lines extending into the greater tuberosity. This is non angle nondisplac ed. Right scapula, clavicle, right upper ribs intact. JOINTS: No glenohumeral dislocation. No acromioclavicular joint widening VISUALIZED LUNGS AND RIBS: No pneumothorax. No rib fracture. SOFT TISSUES: No radiopaque foreign body. OTHER: No other significant finding. IMPRESSION: Acute transverse comminuted fracture right proximal humeral metaphysis to the surgical n galilea. Fracture lines may extend into the greater tuberosity. TECHNICAL DOCUMENTATION: JOB ID: [id number] [employer]- All Rights Reserved
--- NOTE | 2017-10-28 08:53 | EKG REPORT ---
SEVERITY:- ABNORMAL ECG - SINUS RHYTHM NONSPECIFIC INTRAVENTRICULAR CONDUCTION DELAY LOW VOLTAGE IN FRONTAL LEADS NONSPECIFIC ST-T CHANGES : Confirmed by: Ed Yepez 28-Oct-2017 08:52:35
--- NOTE | 2017-10-28 09:00 | RADIOLOGY REPORT (SQ) ---
EXAM DESCRIPTION: CT HEAD WITHOUT COMPLETED DATE/TIME: 10/28/2017 8:29 am REASON FOR STUDY: fall COMPARISON: 10/17/2017, 09/10/2016 CT brain MRI brain 09/10/2016 TECHNIQUE: Axial images acquired through the brain without intravenous contrast. Images reviewed wi th bone, brain and subdural windows. Images stored on PACS. All CT scanners at this facility use dose modulation, iterative reconstruction, and/or weight based d osing when appropriate to reduce radiation dose to as low as reasonably achievable (ALARA). [facility]: Dose Right [facility]: CareDose [facility]: Dose Right [facility]: Teradose 4D [facility]: Smart [employer] RADIATION DOSE: CT Rad equipment meets quality standard of care and radiation dose reduction techniq ues were employed. CTDIvol: 64.6 mGy. DLP: 1034 mGy-cm. mGy. LIMITATIONS: Motion artifact FINDINGS: VENTRICLES: Normal size and contour. CEREBRUM: No masses. No hemorrhage. No midline shift. No evidence for acute infarction. There is an old lacunar infarct in the right basal ganglia/ frontal deep periventricular white matter, stable compared to previous studies. Normal cosme/white matter differentiation. No areas of low density in t he white matter. CEREBELLUM: No masses. No hemorrhage. No alteration of density. No evidence for acute infarction. EXTRAAXIAL SPACES: No fluid collections. No masses. ORBITS AND GLOBE: No intra- or extraconal masses. Normal contour of globe without masses. CALVARIUM: No fracture. PARANASAL SINUSES: No fluid or mucosal thickening. SOFT TISSUES: No mass or hematoma. OTHER: No other significant finding. IMPRESSION: Mild motion artifact. Old lacunar infarct right lateral basal ganglia. EVIDENCE OF ACUTE STROKE: NO. COMMENT: Quality ID # [id number]: Final reports with documentation of one or more dose reduction techniques (e.g., Automated exposure control, adjustment of the mA and/or kV according to patient size, use of iterative reconstruction technique) TECHNICAL DOCUMENTATION: JOB ID: [id number]- All Rights Reserved
--- NOTE | 2017-10-28 09:06 | RADIOLOGY REPORT (SQ) ---
EXAM DESCRIPTION: CT CERVICAL SPINE WITHOUT COMPLETED DATE/TIME: 10/28/2017 8:29 am REASON FOR STUDY: fall COMPARISON: 01/30/2008 TECHNIQUE: Axial images acquired through the cervical spine without intravenous contrast. Images re viewed with lung, soft tissue and bone windows. Reconstructed coronal and sagittal MPR images review ed. Images stored on PACS. All CT scanners at this facility use dose modulation, iterative reconstruction, and/or weight based d osing when appropriate to reduce radiation dose to as low as reasonably achievable (ALARA). [facility]: Dose Right [facility]: CareDose [facility]: Dose Right [facility]: Teradose 4D [facility]: Smart [employer] RADIATION DOSE: CT Rad equipment meets quality standard of care and radiation dose reduction techniq ues were employed. CTDIvol: 24.4 mGy. DLP: 506 mGy-cm. mGy. LIMITATIONS: None. FINDINGS: ALIGNMENT: Anatomic. MINERALIZATION: Normal. VERTEBRAL BODIES: No fractures or dislocation. DISCS: There is disc space loss of height with moderate anterior and posterior osteophyte formation a t C5-6. Dorsal decompression with bilateral laminectomy at the C5 and C6 levels. There is moderate to high-grade right and high-grade left C5-6 foraminal narrowing. These findings are stable compared to 2007. FACETS, LATERAL MASSES, POSTERIOR ELEMENTS: No fractures. No dislocation. No acute findings. HARDWARE: None in the spine. VISUALIZED RIBS: No fractures. LUNG APICES AND SOFT TISSUES: No significant or acute findings. OTHER: No other significant finding. IMPRESSION: No acute changes TECHNICAL DOCUMENTATION: JOB ID: [id number] Quality ID # [id number]: Final reports with documentation of one or more dose reduction techniques (e.g., Au tomated exposure control, adjustment of the mA and/or kV according to patient size, use of iterative reconstruction technique) 2010 [employer]- All Rights Reserved
[2017-10-28 09:19] LABS: APPEARANCE,URINE SLIGHTLY-CLOUDY; BILIRUBIN,URINE NEGATIVE (NEGATIVE); COLOR,URINE YELLOW; GLUCOSE, URINE >=500 mg/dL (NEGATIVE); KETONES,URINE NEGATIVE (NEGATIVE); LEUKOCYTE ESTERASE,URINE MODERATE (NEGATIVE); NITRITE,URINE NEGATIVE (NEGATIVE); PROTEIN,URINE NEGATIVE (NEGATIVE); URINE SPECIFIC GRAVITY 1.014
--- NOTE | 2017-10-28 09:33 | ER Document Report ---
ED General - General Chief Complaint: Fall Stated Complaint: FALL/SHOULDER,FACE INJURY Time Seen by Provider: 10/28/17 06:25 Information source: Patient, Relative - daughter TRAVEL OUTSIDE OF THE [place] IN LAST 30 DAYS: No - HPI Patient complains to provider of: syncope Onset: Just prior to arrival Context: 62-year-old female states that 4 AM she got up to go to the bathroom. She does state she has a drop foot and she may have tripped. Although she does not remember the actual falling down part. She does states she has a history of syncope which is being worked up. Patient has been at [facility] last week and she had a full cardiology workup. She states that she has seen a neurologist as well. She is also had a cardiac cath in last 6 months. She did have a CABG in February 2016 she states "it failed". Associated symptoms: Other - left shoulder pain Similar symptoms previously: Yes Recently seen / treated by doctor: Yes - last week at [facility] as inpt. - Related Data Allergies/Adverse Reactions: latex [Latex] Allergy (Verified 10/17/17 13:33) Past Medical History - General Information source: Patient, Relative - Social History Smoking Status: Never Smoker Frequency of alcohol use: None Drug Abuse: None Lives with: Family Family History: Reviewed & Not Pertinent Patient has suicidal ideation: No Patient has homicidal ideation: No - Past Medical History Cardiac Medical History: Reports: Hx Congestive Heart Failure, Hx Coronary Artery Disease, Hx Heart Attack, Hx Hypercholesterolemia, Hx Hypertension, Hx Heart Murmur Pulmonary Medical History: Reports: Hx Bronchitis, Hx COPD Denies: Hx Tuberculosis EENT Medical History: Reports: None Neurological Medical History: Reports: Hx Cerebrovascular Accident - as per ct head report Endocrine Medical History: Reports: Hx Diabetes Mellitus Type 1, Hx Diabetes Mellitus Type 2 Renal/ Medical History: Reports: Other - recurrent UTIs. Denies: Hx Peritoneal Dialysis GI Medical History: Reports: Hx Gastroesophageal Reflux Disease Musculoskeltal Medical History: Reports Hx Arthritis - osteo Skin Medical History: Reports None Psychiatric Medical History: Reports: Hx Depression Traumatic Medical History: Reports: None Past Surgical History: Reports: Hx Appendectomy, Hx Cardiac Catheterization - x1 with 1 stent, Hx Cholecystectomy, Hx Coronary Artery Bypass Graft, Hx Coronary Stent, Hx Orthopedic Surgery - cervical spinal surgery, degenerative disc disease, right shoulder scar tis, Other - c spine surgery - Immunizations Immunizations up to date: Yes Hx Diphtheria, Pertussis, Tetanus Vaccination: Yes History of Influenza Vaccine for 07/2017 - 12/2017 Season: Yes History of Pneumococcal Vaccine: No Hx Pneumococcal Vaccination: 10/07/09 Review of Systems - Review of Systems Constitutional: Weakness, Recent illness - UTI. Finished cipro last week EENT: No symptoms reported Cardiovascular: No symptoms reported Respiratory: No symptoms reported Gastrointestinal: Vomiting Genitourinary: No symptoms reported Female Genitourinary: Other - yeast infection Musculoskeletal: No symptoms reported Skin: No symptoms reported Hematologic/Lymphatic: No symptoms reported Physical Exam - Vital signs Vitals: BP 106/51 L 10/28/17 05:59 Course - Re-evaluation Re-evalutation: 10/28/17 09:28 I have gone back into the room on 3 separate occasions to talk to the patient as well as her daughter. I did tell him that CT of her head neck or negative lab work looked okay except for mild hyperglycemia. She has had some decrease in her right shoulder pain with the 2 doses of morphine I have given her. I did tell her that she has a humeral head fracture and I will be talked to orthopedics about that. I am awaiting urinalysis at this time. Patient's new vital signs show a heart rate is 74 pulse ox is 96% on room air respiratory rate of 17 blood pressure 144/64 temperature of 97.4. Patient states that she was at [facility] last week for syncopal episodes. She states that this started September 2016 when she was at [employer] shopping with her friend. She states that she got dizzy when outside and passed out. She states that sometimes she feels nauseous and she knows she is going to pass out. She states that the episodes have gotten more frequent. Recently she was food shopping and she returned home she had an episode of nausea and then she passed out. She does states she has had an extensive workup with a cardiac workup and a tilt table test. As of yet they cannot find a reason for her syncopal episodes. She has been getting recurrent UTIs she does have a urology appointment she just finished Cipro last week. I will check her urine today. - Vital Signs Vital signs: Temp Pulse Resp BP Pulse Ox 15 117/57 L 99 10/28/17 07:00 10/28/17 06:05 10/28/17 07:00 - Laboratory Result Diagrams: 10/28/17 06:19 10/28/17 06:19 Laboratory results interpreted by me: 10/28/17 10/28/17 10/28/17 06:19 06:19 08:45 Hgb 11.5 L Hct 35.0 L RDW 15.5 H BUN 21 H Est GFR (Non-Af Amer) 58 L Glucose 225 H Urine Glucose (UA) >=500 H Urine Urobilinogen 2.0 H Ur Leukocyte Esterase MODERATE H Discharge - Discharge Referrals: JSEÚS BARBOUR MD [Primary Care Provider] - Follow up as needed
[2017-10-28] MEDS ORDERED: HYDROCODONE/ACETAMINOPHEN 5-325 MG (6 TAB/ER DISP) PO PRN (11:13)
[2017-10-28 12:03] VITALS: BP 126/56
--- NOTE | 2017-10-28 23:33 | EKG REPORT ---
SEVERITY:- BORDERLINE ECG - SINUS RHYTHM LOW VOLTAGE IN FRONTAL LEADS BORDERLINE T WAVE ABNORMALITIES : Confirmed by: Ed Yepez 28-Oct-2017 23:32:30
== END 2017-10-28 12:03 | disposition home or self-care (01) ==
LOC: ER 05:43
DX: S42.291A Other displaced fracture of upper end of right humerus, initial encounter for closed fracture (principal); Y93.89 Activity, other specified; W19.XXXA Unspecified fall, initial encounter; R55 Syncope and collapse; B37.49 Other urogenital candidiasis; E11.65 Type 2 diabetes mellitus with hyperglycemia; R53.1 Weakness; R11.10 Vomiting, unspecified; I25.10 Atherosclerotic heart disease of native coronary artery without angina pectoris; I25.2 Old myocardial infarction; I10 Essential (primary) hypertension; J44.9 Chronic obstructive pulmonary disease, unspecified; Z95.5 Presence of coronary angioplasty implant and graft; Z86.73 Personal history of transient ischemic attack (TIA), and cerebral infarction without residual deficits; Z95.1 Presence of aortocoronary bypass graft; Z91.040 Latex allergy status; Z87.440 Personal history of urinary (tract) infections
CPT/HCPCS: 93005; 96376; 99285; 96361; 96374; 96375; 36415; 87086; 82553; 82550; 85025; 80053; 81001; 84484; 73030; 70450; 72125; 93010; J2270; J2405; J7030; A9270

== ENCOUNTER → 2017-11-03 | Outpatient (CLI) | payer MEDICARE, MEDICAID ==
--- NOTE | 2017-11-03 12:27 | RADIOLOGY REPORT (SQ) ---
EXAM DESCRIPTION: MRI HEAD WITHOUT COMPLETED DATE/TIME: 11/03/2017 12:08 pm REASON FOR STUDY: DIZZINESS, VISION CHANGES,SYNCOPE R42 DIZZINESS AND GIDDINESS R55 SYNCOPE AND CO LLAPSE H53.9 UNSPECIFIED VISUAL DISTURBANCE COMPARISON: 09/10/2016 TECHNIQUE: Multiplanar imaging includes non-contrasted T1, T2, FLAIR, and Diffusion with ADC map seq uences. Images stored on PACS. LIMITATIONS: Patient motion. FINDINGS: ANATOMY: No anomalies. Normal vascular flow voids. Pituitary fossa normal. CSF SPACES: Normal in size and contour. No hemorrhage. CEREBRUM: A few high-signal intensity lesions scattered throughout the white matter on FLAIR imaging with distribution suggesting chronic micro-vascular ischemic change. Sulci and gyri normal in size a nd contour. No evidence of hemorrhage, mass or extraaxial fluid collection. POSTERIOR FOSSA: No signal alteration. No hemorrhage. No edema, masses or mass effect. Internal ivette tory canals, cerebello-pontine angles, mastoids normal. DIFFUSION: Negative for acute or sub-acute infarction. ORBITS: No masses. Globes normal. PARANASAL SINUSES: No fluid levels. Mucosa normal. OTHER: No other significant finding. IMPRESSION: No acute abnormality in the brain. EVIDENCE OF ACUTE STROKE: NO. TECHNICAL DOCUMENTATION: JOB ID: [id number] [employer]- All Rights Reserved
--- NOTE | 2017-11-03 12:28 | RADIOLOGY REPORT (SQ) ---
EXAM DESCRIPTION: MRA HEAD WITHOUT COMPLETED DATE/TIME: 11/03/2017 12:08 pm REASON FOR STUDY: DIZZINESS, VISION CHANGES, SYNCOPE R42 DIZZINESS AND GIDDINESS R55 SYNCOPE AND C OLLAPSE H53.9 UNSPECIFIED VISUAL DISTURBANCE COMPARISON: None. TECHNIQUE: Axial 3-D [id number] acquisition imaging performed through the brain in the area of t he [place] of [place]. Images reformatted using 3-D MIPS. LIMITATIONS: None. FINDINGS: SOURCE IMAGES: No unexpected findings on source images. No large masses. 3-D MIP: No aneurysm. No occlusions. No significant stenosis. OTHER: No other significant finding. IMPRESSION: NORMAL MRA OF THE [place]. TECHNICAL DOCUMENTATION: JOB ID: [id number] [employer]- All Rights Reserved
== END ==
LOC: RAD 11:10
PROVIDERS: ATTEND Physician Assistant
DX: H53.9 Unspecified visual disturbance (principal); R42 Dizziness and giddiness; R55 Syncope and collapse; R93.0 Abnormal findings on diagnostic imaging of skull and head, not elsewhere classified
CPT/HCPCS: 70544; 70551

== ENCOUNTER → 2017-11-06 | Outpatient (CLI) | payer MEDICARE, MEDICAID ==
--- NOTE | 2017-11-06 11:51 | RADIOLOGY REPORT (SQ) ---
EXAM DESCRIPTION: CAROTID DOPPLER COMPLETED DATE/TIME: 11/06/2017 9:21 am REASON FOR STUDY: DIZZINESS,SYNCOPE R42 DIZZINESS AND GIDDINESS COMPARISON: Carotid Doppler 09/10/2016 CT brain 10/17/2017, 10/28/2017 CT cervical spine 10/28/2017 MRI brain and MRA exam [place] 11/03/2017 TECHNIQUE: Grayscale ultrasound, Doppler velocity and spectra, and color Doppler images acquired of the extra-cranial carotid and vertebral arteries. Images stored on PACS. LIMITATIONS: None. FINDINGS: RIGHT CAROTID CCA Velocities: Within normal limits. ICA Velocities Peak systolic 0.42 m/s. End diastolic 0.13 m/s. Proximal ICA/CCA peak systolic ratio 1.1. Spectra normal. No significant plaque. LEFT CAROTID CCA Velocities: Within normal limits. ICA Velocities Peak systolic 0.44 m/s. End diastolic 0.12 m/s. Proximal ICA/CCA peak systolic ratio 1.0. Spectra normal. No significant plaque. VERTEBRAL ARTERIES: Antegrade flow. Normal waveforms. SUBCLAVIAN ARTERIES: Not evaluated OTHER: No other significant finding. IMPRESSION: NO HEMODYNAMICALLY SIGNIFICANT STENOSIS. COMMENT: Quality ID #[id number]: Velocity criteria are extrapolated from the diameter data as defined by t he Society of Radiologists in Ultrasound Consensus Conference. Radiology 2003: 229; 340-346. TECHNICAL DOCUMENTATION: JOB ID: [id number] [employer]- All Rights Reserved
== END ==
LOC: SP 08:27
PROVIDERS: ATTEND Physician Assistant
DX: R42 Dizziness and giddiness (principal); R55 Syncope and collapse; H53.9 Unspecified visual disturbance
CPT/HCPCS: 93880

== ENCOUNTER → 2018-01-30 | Outpatient (CLI) | payer MEDICARE, MEDICAID ==
--- NOTE | 2018-01-30 16:44 | RADIOLOGY REPORT (SQ) ---
EXAM DESCRIPTION: LUMBAR SPINE COMPLETE COMPLETED DATE/TIME: 01/30/2018 4:30 pm REASON FOR STUDY: LUMBAGO WITH SCIATICA, RIGHT SIDE M54.41 LUMBAGO WITH SCIATICA, RIGHT SIDE COMPARISON: None. NUMBER OF VIEWS: Five views including obliques. TECHNIQUE: AP, lateral, oblique, and sacral radiographic images acquired of the lumbar spine. LIMITATIONS: None. FINDINGS: MINERALIZATION: Normal. SEGMENTATION: Normal. No transitional anatomy. ALIGNMENT: Normal. VERTEBRAE: Maintained height. No fracture or worrisome bone lesion. DISCS: Multilevel disc space narrowing with osteophytes. POSTERIOR ELEMENTS: Pedicles and facets are intact. No pars defect or posterior arch defects. Facet arthropathy is present. HARDWARE: None in the spine. PARASPINAL SOFT TISSUES: Normal. PELVIS: Intact as visualized. No fractures or worrisome bone lesions. SI joints intact. OTHER: No other significant finding. IMPRESSION: SPONDYLOSIS WITHOUT BONE LESION OR FRACTURE. TECHNICAL DOCUMENTATION: JOB ID: [id number] [employer]- All Rights Reserved Reading location - IP/workstation name: [email or web address]
== END ==
LOC: OD 15:49
PROVIDERS: ATTEND Physician Assistant
DX: M54.41 Lumbago with sciatica, right side (principal); M47.896 Other spondylosis, lumbar region
CPT/HCPCS: 72110

== ENCOUNTER 2020-04-17 14:18 | Inpatient (IN) | payer MEDICARE, MEDICAID ==
--- NOTE | 2020-04-17 14:50 | ER Document Report ---
ED Medical Screen (RME) - General Chief Complaint: Near Syncope Stated Complaint: KNEE PAIN,WEAKNESS Time Seen by Provider: 04/17/20 14:48 Primary Care Provider: LIBERTAD MOBLEY PA-C [Primary Care Provider] - Follow up as needed Information source: Patient, Relative Notes: This 65-year-old female with a history of congestive heart failure who has had progressive weakness over the course of the last year which is becoming more and more frequent said that her lower extremities have given out multiple times over the last 2 days today while ambulating out of a restaurant she had a near s yncopal to syncopal episode patient states she remembers the event but the daughter says she could not respond and had slurred speech TRAVEL OUTSIDE OF THE [place] IN LAST 30 DAYS: No - Related Data Allergies/Adverse Reactions: latex [Latex] Allergy (Verified 10/17/17 13:33) Past Medical History - Past Medical History Cardiac Medical History: Reports: Hx Congestive Heart Failure, Hx Coronary Artery Disease, Hx Heart Attack, Hx Hypercholesterolemia, Hx Hypertension, Hx Heart Murmur Pulmonary Medical History: Reports: Hx Bronchitis, Hx COPD Denies: Hx Tuberculosis Neurological Medical History: Reports: Hx Cerebrovascular Accident - as per ct head report Endocrine Medical History: Reports: Hx Diabetes Mellitus Type 1, Hx Diabetes Mellitus Type 2 Renal/ Medical History: Denies: Hx Peritoneal Dialysis GI Medical History: Reports: Hx Gastroesophageal Reflux Disease Musculoskeltal Medical History: Reports Hx Arthritis - osteo Psychiatric Medical History: Reports: Hx Depression Past Surgical History: Reports: Hx Appendectomy, Hx Cardiac Catheterization - x1 with 1 stent, Hx Cholecystectomy, Hx Coronary Artery Bypass Graft, Hx Coronary Stent, Hx Orthopedic Surgery - cervical spinal surgery, degenerative disc disease, right shoulder scar tis, Other - c spine surgery - Immunizations Immunizations up to date: Yes Hx Diphtheria, Pertussis, Tetanus Vaccination: Yes Doctor's Discharge - Discharge Referrals: LIBERTAD MOBLEY PA-C [Primary Care Provider] - Follow up as needed
[2020-04-17 15:14] LABS: ABSOLUTE EOSINOPHILS # (AUTO) 0.2 10^3/uL (0.0-0.6); ABSOLUTE LYMPHOCYTES (AUTO) 1.4 10^3/uL (0.5-4.7); ABSOLUTE MONOCYTES (AUTO) 0.5 10^3/uL (0.1-1.4); ABSOLUTE NEUT (AUTO) 4.3 10^3/uL (1.7-8.2); BASOPHILS % (AUTO) 0.7 % (0-2); EOSINOPHILS % (AUTO) 2.6 % (0-6); HEMATOCRIT 35.4 % (36.0-47.0); HEMOGLOBIN 11.8 g/dL (12.0-15.5); LYMPHOCYTES % (AUTO) 22.2 % (13-45); MEAN CORPUSCULAR HEMOGLOBIN 27.4 pg (27.0-33.4); MEAN CORPUSCULAR HGB CONC 33.4 g/dL (32.0-36.0); MEAN CORPUSCULAR VOLUME 82 fl (80-97); MONOCYTES % (AUTO) 8.4 % (3-13); PLATELET COUNT 258 10^3/uL (150-450); RED BLOOD COUNT 4.31 10^6/uL (3.72-5.28); SEGMENTED NEUTROPHILS % (AUTO) 66.1 % (42-78); TOTAL CELLS COUNTED % (AUTO) 100 %; WHITE BLOOD COUNT 6.5 10^3/uL (4.0-10.5)
--- NOTE | 2020-04-17 15:24 | RADIOLOGY REPORT (SQ) ---
EXAM DESCRIPTION: CHEST SINGLE VIEW IMAGES COMPLETED DATE/TIME: 04/17/2020 3:09 pm REASON FOR STUDY: pain sp fall COMPARISON: 11/25/2016 EXAM PARAMETERS: NUMBER OF VIEWS: One view. TECHNIQUE: Single frontal radiographic view of the chest acquired. RADIATION DOSE: NA LIMITATIONS: None. FINDINGS: LUNGS AND PLEURA: No opacities, masses or pneumothorax. No pleural effusion. MEDIASTINUM AND HILAR STRUCTURES: No masses. Contour normal. HEART AND VASCULAR STRUCTURES: Heart normal in size. Normal vasculature. BONES: No acute findings. HARDWARE: Midline surgical changes. OTHER: No other significant finding. IMPRESSION: No pneumothorax or displaced rib fracture. TECHNICAL DOCUMENTATION: JOB ID: [id number] 2010 [employer]- All Rights Reserved Reading location - IP/workstation name: [email or web address]
[2020-04-17 15:26] LABS: ALBUMIN 3.9 g/dL (3.5-5.0); ALKALINE PHOSPHATASE 68 U/L (38-126); ANION GAP 5 (5-19); ASPARTATE AMINO TRANSFERASE 30 U/L (14-36); BILIRUBIN,TOTAL 0.9 mg/dL (0.2-1.3); BLOOD UREA NITROGEN 17 mg/dL (7-20); CALCIUM 9.3 mg/dL (8.4-10.2); CARBON DIOXIDE 26 mmol/L (22-30); CHLORIDE 103 mmol/L (98-107); GLUCOSE 162 mg/dL (75-110); POTASSIUM 4.9 mmol/L (3.6-5.0); TOTAL PROTEIN 6.8 g/dL (6.3-8.2)
--- NOTE | 2020-04-17 15:33 | RADIOLOGY REPORT (SQ) ---
EXAM DESCRIPTION: CT HEAD WITHOUT IMAGES COMPLETED DATE/TIME: 04/17/2020 3:18 pm REASON FOR STUDY: aloc COMPARISON: None. TECHNIQUE: Axial images acquired through the brain without intravenous contrast. Images reviewed wi th bone, brain and subdural windows. Additional sagittal and coronal reconstructions were generated. Images stored on PACS. All CT scanners at this facility use dose modulation, iterative reconstruction, and/or weight based d osing when appropriate to reduce radiation dose to as low as reasonably achievable (ALARA). [facility]: Dose Right [facility]: CareDose [facility]: Dose Right [facility]: Teradose 4D [facility]: Smart Store Eyes RADIATION DOSE: CT Rad equipment meets quality standard of care and radiation dose reduction techniq ues were employed. CTDIvol: 53.2 mGy. DLP: 964 mGy-cm. mGy. LIMITATIONS: None. FINDINGS: VENTRICLES: Prominent. CEREBRUM: No masses. No hemorrhage. No midline shift. Areas of low density in the white matter mos t likely due to chronic micro-vascular ischemic change. No evidence for acute infarction. CEREBELLUM: No masses. No hemorrhage. No alteration of density. No evidence for acute infarction. EXTRAAXIAL SPACES: Mild age-related involutional change. No fluid collections. No masses. ORBITS AND GLOBE: No intra- or extraconal masses. Normal contour of globe without masses. CALVARIUM: No fracture. PARANASAL SINUSES: No fluid or mucosal thickening. SOFT TISSUES: No mass or hematoma. OTHER: No other significant finding. IMPRESSION: MILD CHRONIC CHANGES OF ATROPHY AND MICROVASCULAR ISCHEMIA. NO ACUTE PROCESS. EVIDENCE OF ACUTE STROKE: NO. TECHNICAL DOCUMENTATION: JOB ID: [id number] Quality ID # [id number]: Final reports with documentation of one or more dose reduction techniques (e.g., Au tomated exposure control, adjustment of the mA and/or kV according to patient size, use of iterative reconstruction technique) 2010 [employer]- All Rights Reserved Reading location - IP/workstation name: [email or web address]
[2020-04-17 16:23] LABS: AMORPHOUS SEDIMENT,URINE TRACE /HPF; APPEARANCE,URINE CLOUDY; BILIRUBIN,URINE NEGATIVE (NEGATIVE); COLOR,URINE AMBER; GLUCOSE, URINE >=500 mg/dL (NEGATIVE); KETONES,URINE NEGATIVE (NEGATIVE); LEUKOCYTE ESTERASE,URINE SMALL (NEGATIVE); NITRITE,URINE POSITIVE (NEGATIVE); PROTEIN,URINE NEGATIVE (NEGATIVE); URINE SPECIFIC GRAVITY 1.012; UROBILINOGEN,URINE NEGATIVE mg/dL (<2.0)
[2020-04-17] MEDS ORDERED: CEFTRIAXONE 1 GM/D5W RTU 1 GM/50 ML RTUPB IV ONE (17:27)
[2020-04-17] MEDS ORDERED: NORMAL SALINE 1000 ML 1,000 ML IV ONE (17:27)
[2020-04-17] MEDS ORDERED: ASPIRIN 325 MG TABLET PO ONE (17:27)
--- NOTE | 2020-04-17 17:32 | ER Document Report ---
ED Dizziness/Weakness - General Chief Complaint: Near Syncope Stated Complaint: KNEE PAIN,WEAKNESS Time Seen by Provider: 04/17/20 14:48 Primary Care Provider: LIBERTAD MOBLEY PA-C [PHYSICIAN CORONER] - Follow up as needed Notes: HPI: Patient is a 65-year-old female that presents today having 2 episodes today of feeling as if she was going to pass out. She did have a history of vertigo in the past. She states she has been admitted previously for TIA. She just moved here in February. She states that she felt lightheaded and dizzy and off- balance. This occurred twice at 2 different settings. She denies headache, double blurry vision, neck pain, chest pain, shortness of breath, calf pain or leg swelling, abdominal pain, or current weakness or numbness. Patient states that she has had some irritation when urinating the last 2 days and thought possibly she was having a urinary tract infection as well. ROS: See HPI All other review of systems reviewed and otherwise negative Reviewed vital signs and nursing note as charted by RN. PHYSICAL EXAM: CONSTITUTIONAL: Alert and oriented and responds appropriately to questions. Well-appearing; well-nourished HEAD: Normocephalic; atraumatic EYES: PERRL; full extraocular range of motion ENT: Normal nose; no rhinorrhea; moist mucous membranes; pharynx without lesions noted NECK: Supple without meningismus; non-tender; no cervical lymphadenopathy, no masses CARD: Regular rate and rhythm; no carotid bruit; no murmurs; symmetric distal pulses RESP: Normal chest excursion without splinting or tachypnea; breath sounds clear and equal bilaterally; no wheezes, no rhonchi, no rales ABD/GI: Normal bowel sounds; non-distended; soft, non-tender; no palpable organomegaly or masses BACK: The back appears normal and is non-tender to palpation EXT: Normal ROM in all joints; non-tender to palpation; no edema SKIN: No acute lesions noted NEURO: CN 2-12 intact; some rightward beating nystagmus; 5/5 bilateral upper and lower extremity strength with sensation intact to light touch PSYCH: The patient's mood and manner are appropriate. Grooming and personal hygiene are appropriate. TRAVEL OUTSIDE OF THE [place] IN LAST 30 DAYS: No - Related Data Allergies/Adverse Reactions: latex [Latex] Allergy (Verified 04/17/20 14:52) Past Medical History - General Information source: Patient, Relative - Social History Smoking Status: Never Smoker Frequency of alcohol use: Occasional Drug Abuse: None Family History: Reviewed & Not Pertinent Patient has homicidal ideation: No - Past Medical History Cardiac Medical History: Reports: Hx Congestive Heart Failure, Hx Coronary Artery Disease, Hx Heart Attack, Hx Hypercholesterolemia, Hx Hypertension, Hx Heart Murmur Pulmonary Medical History: Reports: Hx Bronchitis, Hx COPD Denies: Hx Tuberculosis Neurological Medical History: Reports: Hx Cerebrovascular Accident - as per ct head report Endocrine Medical History: Reports: Hx Diabetes Mellitus Type 1, Hx Diabetes Mellitus Type 2 Renal/ Medical History: Denies: Hx Peritoneal Dialysis GI Medical History: Reports: Hx Gastroesophageal Reflux Disease Musculoskeletal Medical History: Reports Hx Arthritis - osteo Psychiatric Medical History: Reports: Hx Depression Past Surgical History: Reports: Hx Appendectomy, Hx Cardiac Catheterization - x1 with 1 stent, Hx Cholecystectomy, Hx Coronary Artery Bypass Graft, Hx Coronary Stent, Hx Orthopedic Surgery - cervical spinal surgery, degenerative disc disease, right shoulder scar tis, Other - c spine surgery - Immunizations Immunizations up to date: Yes Hx Diphtheria, Pertussis, Tetanus Vaccination: Yes Hx Pneumococcal Vaccination: 10/07/09 Physical Exam - Vital signs Vitals: Temp Pulse Resp BP Pulse Ox 98.4 F 65 18 109/50 L 97 04/17/20 14:42 04/17/20 14:42 04/17/20 14:42 04/17/20 14:42 04/17/20 14:42 Course - Re-evaluation Re-evalutation: Given the history and physical examination, we will order imaging, EKG, cardiac panel, and urine analysis. I would like to evaluate for the possibility of an acute anterior cerebral lesion, urinary tract infection, cardiac equivalent causing dizziness, or any other acute problems. EKG shows a rate of 58, normal sinus rhythm, poor wave progression, no ST elevation or depression. Previous EKG in 2018 did not show as poor of an R wave progression. 04/17/20 17:29 Imaging and labs as recorded. CT scan of the head and x-ray as recorded. EKG shows poor wave progression. Troponin as recorded. Urinalysis shows what appears to be urinary tract infection. Given the concern about sync ope/dizziness with some rightward beating nystagmus, I believe the patient requires further work-up with antibiotics and possibly a TIA evaluation. - Vital Signs Vital signs: Temp Pulse Resp BP Pulse Ox 98.4 F 65 18 109/50 L 97 04/17/20 14:48 04/17/20 14:42 04/17/20 14:42 04/17/20 14:42 04/17/20 14:42 - Laboratory Result Diagrams: 04/17/20 14:59 04/17/20 14:59 Laboratory results interpreted by me: 04/17/20 04/17/20 04/17/20 14:59 14:59 16:00 Hgb 11.8 L Hct 35.4 L RDW 19.0 H Sodium 134.4 L Glucose 162 H Urine Glucose (UA) >=500 H Urine Nitrite POSITIVE H Ur Leukocyte Esterase SMALL H Discharge - Discharge Clinical Impression: Near syncope UTI (urinary tract infection) Qualifiers: Urinary tract infection type: acute cystitis Hematuria presence: without he maturia Qualified Code(s): N30.00 - Acute cystitis without hematuria Condition: Good Disposition: ADMITTED OBSERVATION Admitting Provider: Shira (Hospitalist) Unit Admitted: Telemetry Referrals: LIBERTAD MOBLEY PA-C [PHYSICIAN CORONER] - Follow up as needed
[2020-04-17] MEDS ORDERED: ACETAMINOPHEN 325 MG TABLET PO PRN (18:34)
[2020-04-17] MEDS ORDERED: DEXTROSE 50%-WATER 25 GM/50 ML DISP.SYRIN IV PRN ×2 (18:46)
[2020-04-17] MEDS ORDERED: DEXTROSE 40% GEL 15 GM TUBE PO PRN ×2 (18:46)
[2020-04-17] MEDS ORDERED: GLUCAGON,HUMAN RECOMB 1 MG INJ IM PRN (18:46)
--- NOTE | 2020-04-17 19:11 | EKG REPORT ---
SEVERITY:- ABNORMAL ECG - SINUS RHYTHM ABNRM R PROG, CONSIDER ASMI OR LEAD PLACEMENT : Confirmed by: Tee Valera MD 17-Apr-2020 19:11:17
--- NOTE | 2020-04-17 20:24 | RADIOLOGY REPORT (SQ) ---
EXAM DESCRIPTION: MRI of the brain without gadolinium CLINICAL HISTORY: 65 years Female; vertigo dizziness. Off balance. Weakness. Syncope. TECHNIQUE: Routine noncontrast MRI brain protocol COMPARISON: MRI of the brain without gadolinium November 03, 2017 FINDINGS: Diffusion: No diffusion restriction. Brain: There is minimal punctate scattered areas of increased signal in the periventricular white matter bilaterally. The appearance and distribution is unchanged. This is suggestive of small vessel ischemic disease. No mass lesions. No midline shift. No abnormal extra-axial fluid collections. Overall appearance the brain parenchyma is stable. No hemosiderin deposition. Skull: Calvarial marrow is normal. Orbits and paranasal sinuses: Paranasal sinuses and mastoid air cells are clear. Visualized portions of the orbits are normal. Vessels: Normal flow-voids are seen in the major intracranial arteries. IMPRESSION: 1. No acute ischemia or infarction. 2. Minimal scattered areas of increased signal in the periventricular white matter suggestive of small vessel ischemic disease. The appearance is stable. 3. No acute process. No mass lesion. No significant interval change.
[2020-04-17 22:21] LABS: CREATINE KINASE MB 0.41 ng/mL (<4.55)
[2020-04-17 22:40] LABS: TROPONIN I < 0.012 ng/mL
[2020-04-17] MEDS: INSULIN LISPRO 100 UNIT/ML 3 ML VIAL SUBCUT SCH (23:34)
[2020-04-17] MEDS: ATORVASTATIN CALCIUM 40 MG TABLET PO SCH (23:35)
[2020-04-18 04:50] LABS: ABSOLUTE EOSINOPHILS # (AUTO) 0.2 10^3/uL (0.0-0.6); ABSOLUTE LYMPHOCYTES (AUTO) 1.8 10^3/uL (0.5-4.7); ABSOLUTE MONOCYTES (AUTO) 0.4 10^3/uL (0.1-1.4); ABSOLUTE NEUT (AUTO) 2.6 10^3/uL (1.7-8.2); BASOPHILS % (AUTO) 0.4 % (0-2); EOSINOPHILS % (AUTO) 3.1 % (0-6); HEMOGLOBIN 11.1 g/dL (12.0-15.5); LYMPHOCYTES % (AUTO) 35.5 % (13-45); MEAN CORPUSCULAR HEMOGLOBIN 27.7 pg (27.0-33.4); MEAN CORPUSCULAR HGB CONC 33.7 g/dL (32.0-36.0); MEAN CORPUSCULAR VOLUME 82 fl (80-97); MONOCYTES % (AUTO) 8.2 % (3-13); PLATELET COUNT 178 10^3/uL (150-450); RED BLOOD COUNT 4.01 10^6/uL (3.72-5.28); RED CELL DISTRIBUTION WIDTH 19.1 % (11.5-14.0); SEGMENTED NEUTROPHILS % (AUTO) 52.8 % (42-78); TOTAL CELLS COUNTED % (AUTO) 100 %
[2020-04-18 05:10] LABS: BLOOD UREA NITROGEN 17 mg/dL (7-20); CALCIUM 9.1 mg/dL (8.4-10.2); CHOLESTEROL 109.09 mg/dL (0-200); CREATINE KINASE 39 U/L (30-135); GLUCOSE 214 mg/dL (75-110); POTASSIUM 4.3 mmol/L (3.6-5.0); TRIGLYCERIDES 131 mg/dL (<150)
[2020-04-18 05:16] LABS: ANION GAP 6 (5-19); CARBON DIOXIDE 27 mmol/L (22-30); CHLORIDE 103 mmol/L (98-107)
[2020-04-18 05:21] LABS: DIRECT LDL 44 mg/dL (<100)
[2020-04-18 05:39] LABS: TROPONIN I < 0.012 ng/mL
--- NOTE | 2020-04-18 09:24 | PDOC H&P ---
History of Present Illness Admission Date/PCP: 04/17/20 18:34 JESÚS BARBOUR MD Patient complains of: Syncopal episode History of Present Illness: STEPHANIE POP is a 65 year old female This is a 65-year-old female's with a history of coronary artery disease status post bypass currently see a Dr. Irvin with a history of type 2 diabetes hypertension's hyperlipidemia history of the TIA in the past came to the emergency department with the complaining of passing out syncopal type of episodes when patient is feeling weakHis last several days And have a discount of episodes all the times have extensive evaluations done in the [place] and seen by the cardiologyPast and recently seen Dr. Irvin also Patient initial work-up including the CT of the head and MRI of the head was negative for any acute stroke Patient's have also found urinary tract infections currently on IV Rocephin Patient's denied any chest pain no short of breath When I saw the patient on the floor patient is alert awake oriented denied any complaints Past Medical History Cardiac Medical History: Reports: Congestive Heart Failure, Coronary Artery Disease, Myocardial Infarction, Hyperlipidema, Hypertension, Heart Murmur Pulmonary Medical History: Reports: Bronchitis, Chronic Obstructive Pulmonary Disease (COPD) Denies: Tuberculosis Endocrine Medical History: Reports: Diabetes Mellitus Type 2 GI Medical History: Reports: Gastroesophageal Reflux Disease Musculoskeltal Medical History: Reports: Arthritis - osteo Psychiatric Medical History: Reports: Depression Past Surgical History Past Surgical History: Reports: Appendectomy, Cardiac Catheterization - x1 with 1 stent, Cholecystectomy, Coronary Artery Bypass Graft, Coronary Stent, Orthopedic Surgery - cervical spinal surgery, degenerative disc disease, right shoulder scar tis, Other - c spine surgery Social History Information Source: Patient Smoking Status: Never Smoker Frequency of Alcohol Use: Rare Hx Recreational Drug Use: No Drugs: None Hx Prescription Drug Abuse: No Family History Family History: Reviewed & Not Pertinent Parental Family History Reviewed: Yes Children Family History Reviewed: Yes Sibling(s) Family History Reviewed.: Yes Medication/Allergy Home Medications: Aspirin [Aspirin 81 mg Chewable Tablet] 81 mg PO DAILY 10/18/17 Atorvastatin Calcium [Lipitor 80 mg Tablet] 80 mg PO QHS 10/18/17 Fluticasone Propionate [Flonase Nasal Haskell 50 Mcg/Haskell 16 gm] 1 spray NASL D AILYP PRN 10/18/17 Insulin Aspart [Novolog Insulin (Aspart) 100 unit/mL] 0 unit SQ .SLIDING SCALE 0 10/18/17 Insulin Detemir [Levemir Flextouch] 10 unit SQ DAILY 10/18/17 Insulin Detemir [Levemir Flextouch] 20 unit SQ QHS 10/18/17 Isosorbide Mononitrate [Imdur 60 mg Tablet.er] 180 mg PO DAILY 10/18/17 Liraglutide [Victoza 2-Horacio] 1.2 mg SQ DAILY 10/18/17 Metoprolol Succinate [Toprol Xl 50 mg Tab.sr] 50 mg PO DAILY 10/18/17 Nitroglycerin [Nitrostat] 0.4 mg SL Q5MP PRN 10/18/17 Omeprazole 20 mg PO DAILY 10/18/17 Pregabalin [Lyrica] 200 mg PO Q12 10/18/17 Ramipril [Altace 10 mg Capsule] 10 mg PO DAILY 10/18/17 Ranolazine [Ranexa] 1,000 mg PO Q12 10/18/17 Sertraline HCl [Zoloft] 25 mg PO DAILY 10/18/17 Sertraline HCl [Zoloft] 100 mg PO DAILY 10/18/17 Solifenacin Succinate [Vesicare] 5 mg PO DAILY 10/18/17 Temazepam [Restoril 7.5 mg Capsule] 7.5 mg PO QHS 10/18/17 Ticagrelor [Brilinta 90 mg Tablet] 90 mg PO Q12 10/18/17 Ciprofloxacin HCl [Cipro 500 mg Tablet] 500 mg PO BID #14 tablet 10/19/17 Hydrocodone/Acetaminophen [Orrington 5-325 mg Tablet] 1 tab PO Q4 3 Days #20 tablet 10/28/17 Allergies/Adverse Reactions: latex [Latex] Allergy (Verified 04/17/20 14:52) Review of Systems Constitutional: ABSENT: chills, fever(s), headache(s), weight gain, weight loss Eyes: ABSENT: visual disturbances Ears: ABSENT: hearing changes Cardiovascular: ABSENT: chest pain, dyspnea on exertion, edema, orthropnea, palpitations Respiratory: ABSENT: cough, hemoptysis Gastrointestinal: ABSENT: abdominal pain, constipation, diarrhea, hematemesis, hematochezia, nausea, vomiting Genitourinary: ABSENT: dysuria, hematuria Musculoskeletal: ABSENT: joint swelling Integumentary: ABSENT: rash, wounds Neurological: ABSENT: abnormal gait, abnormal speech, confusion, dizziness, focal weakness, syncope Psychiatric: ABSENT: anxiety, depression, homidical ideation, suicidal ideation Endocrine: ABSENT: cold intolerance, heat intolerance, menstrual abnormalities, polydipsia, polyuria Hematologic/Lymphatic: ABSENT: easy bleeding, easy bruising, lymphadenopathy Physical Exam Vital Signs: Temp Pulse Resp BP Pulse Ox 97.9 F 63 16 91/71 L 98 04/18/20 07:46 04/18/20 07:46 04/18/20 07:46 04/18/20 07:46 04/18/20 07:46 Intake & Output 04/17/20 04/18/20 04/19/20 06:59 06:59 06:59 Intake Total 1400 Output Total 400 Balance 1000 Weight 100.8 kg General appearance: PRESENT: no acute distress, well-developed, well-nourished Head exam: PRESENT: atraumatic, normocephalic Eye exam: PRESENT: conjunctiva pink, EOMI, PERRLA. ABSENT: scleral icterus Ear exam: PRESENT: normal external ear exam Mouth exam: PRESENT: moist, tongue midline Neck exam: PRESENT: full ROM. ABSENT: carotid bruit, JVD, lymphadenopathy, thyromegaly Respiratory exam: PRESENT: clear to auscultation kerri Cardiovascular exam: PRESENT: RRR. ABSENT: diastolic murmur, rubs, systolic murmur Pulses: PRESENT: normal dorsalis pedis pul, +2 pedal pulses bilateral Vascular exam: PRESENT: normal capillary refill GI/Abdominal exam: PRESENT: normal bowel sounds, soft. ABSENT: distended, guarding, mass, organolmegaly, rebound, tenderness Rectal exam: PRESENT: deferred Musculoskeletal exam: PRESENT: ambulatory Neurological exam: PRESENT: alert, awake, oriented to person, oriented to place, oriented to time, oriented to situation, reflexes normal, CN II-XII grossly intact, normal gait. ABSENT: motor sensory deficit Psychiatric exam: PRESENT: appropriate affect, normal mood. ABSENT: homicidal ideation, suicidal ideation Skin exam: PRESENT: dry, intact, warm. ABSENT: cyanosis, rash Results Laboratory Results: 04/18/20 03:54 04/18/20 03:54 04/17/20 04/17/20 04/17/20 14:59 14:59 16:00 WBC 6.5 RBC 4.31 Hgb 11.8 L Hct 35.4 L MCV 82 MCH 27.4 MCHC 33.4 RDW 19.0 H Plt Count 258 Seg Neutrophils % 66.1 Sodium 134.4 L Potassium 4.9 Chloride 103 Carbon Dioxide 26 Anion Gap 5 BUN 17 Creatinine 0.93 Est GFR ( Amer) > 60 Glucose 162 H Calcium 9.3 Total Bilirubin 0.9 AST 30 Alkaline Phosphatase 68 Total Protein 6.8 Albumin 3.9 Triglycerides Cholesterol LDL Cholesterol Direct VLDL Cholesterol HDL Cholesterol Urine Color PATIENCE Urine Appearance CLOUDY Urine pH 5.0 Ur Specific [place] 1.012 Urine Protein NEGATIVE Urine Glucose (UA) >=500 H Urine Ketones NEGATIVE Urine Blood NEGATIVE Urine Nitrite POSITIVE H Ur Leukocyte Esterase SMALL H Urine WBC (Auto) 5 Urine RBC (Auto) 3 04/18/20 04/18/20 03:54 03:54 WBC 5.0 RBC 4.01 Hgb 11.1 L Hct 33.0 L MCV 82 MCH 27.7 MCHC 33.7 RDW 19.1 H Plt Count 178 Seg Neutrophils % 52.8 Sodium 135.6 L Potassium 4.3 Chloride 103 Carbon Dioxide 27 Anion Gap 6 BUN 17 Creatinine 0.90 Est GFR ( Amer) > 60 Glucose 214 H Calcium 9.1 Total Bilirubin AST Alkaline Phosphatase Total Protein Albumin Triglycerides 131 Cholesterol 109.09 LDL Cholesterol Direct 44 VLDL Cholesterol 26.0 HDL Cholesterol 53 Urine Color Urine Appearance Urine pH Ur Specific [place] Urine Protein Urine Glucose (UA) Urine Ketones Urine Blood Urine Nitrite Ur Leukocyte Esterase Urine WBC (Auto) Urine RBC (Auto) 04/17/20 04/17/20 04/17/20 14:59 21:37 21:37 Creatine Kinase 44 CK-MB (CK-2) 0.41 Troponin I < 0.012 < 0.012 04/18/20 04/18/20 03:54 03:54 Creatine Kinase 39 CK-MB (CK-2) 0.30 Troponin I < 0.012 Impressions: Chest X-Ray 04/17/20 14:50 IMPRESSION: No pneumothorax or displaced rib fracture. Head CT 04/17/20 14:50 IMPRESSION: MILD CHRONIC CHANGES OF ATROPHY AND MICROVASCULAR ISCHEMIA. NO ACUTE PROCESS. EVIDENCE OF ACUTE STROKE: NO. Head MRI 04/17/20 18:33 IMPRESSION: 1. No acute ischemia or infarction. 2. Minimal scattered areas of increased signal in the periventricular white matter suggestive of small vessel ischemic disease. The appearance is stable. 3. No acute process. No mass lesion. No significant interval change. Assessment & Plan - Diagnosis (1) Syncope Qualifiers: Syncope type: unspecified Qualified Code(s): R55 - Syncope and collapse Is this a current diagnosis for this admission?: Yes Plan: Patient have extensive evaluation done in the past recent MRI is negative we will get the carotid Doppler also consult the cardiology for further cardiac evaluations could be a possible underlying urinary tract infections we will get the physical therapy evaluation also (2) UTI (urinary tract infection) Qualifiers: Urinary tract infection type: acute cystitis Hematuria presence: without hematuria Qualified Code(s): N30.00 - Acute cystitis without hematuria Is this a current diagnosis for this admission?: Yes Plan: Continues the IV Rocephin (3) Coronary arteriosclerosis after coronary artery bypass grafting Is this a current diagnosis for this admission?: Yes Plan: Rule out acute coronary syndromes follow-up with the cardiology (4) Hyperlipemia Qualifiers: Hyperlipidemia type: unspecified Is this a current diagnosis for this admission?: Yes Plan: Continues a statin (5) Osteoarthritis Qualifiers: Osteoarthritis location: multiple joints Is this a current diagnosis for this admission?: Yes (6) TIA (transient ischemic attack) Qualifiers: Transient cerebral ischemia type: unspecified Qualified Code(s): G45.9 - Transient cerebral ischemic attack, unspecified Is this a current diagnosis for this admission?: Yes Plan: Most likely a patients have a syncopal episode which ongoing problems unlikely to be a TIA symptoms patient with history of the TIA in past continues aspirin Plavix and a statin - Time Time Spent: 50 to 70 Minutes Medications reviewed and adjusted accordingly: Yes Anticipated discharge: Home Within: Other - Inpatient Certification Based on my medical assessment, after consideration of the patient's comorbidities, presenting symptoms, or acuity I expect that the services needed warrant INPATIENT care.: Yes I certify that my determination is in accordance with my understanding of Medicare's requirements for reasonable and necessary INPATIENT services [42 CFR 412.3e].: Yes Medical Necessity: Significant Comorbidiites Make Outpatient Treatment Too Risky, Need Close Monitoring Due to Risk of Patient Decompensation, Need for Neurological Checks, Need for IV Antibiotics 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
[2020-04-18 09:53] LABS: CREATINE KINASE MB < 0.22 ng/mL (<4.55); TROPONIN I < 0.012 ng/mL
[2020-04-18] MEDS: INSULIN LISPRO 100 UNIT/ML 3 ML VIAL SUBCUT SCH ×4 (09:53→22:10)
[2020-04-18] MEDS: ENOXAPARIN SODIUM INJ 40 MG/0.4 ML DISP.SYRIN SUBCUT SCH (09:53)
[2020-04-18] MEDS: CEFTRIAXONE 1 GM/D5W RTU 1 GM/50 ML RTUPB IV SCH (09:55)
[2020-04-18] MEDS ORDERED: ASPIRIN 325 MG TABLET, ENT COATED PO SCH (10:00)
[2020-04-18] MEDS ORDERED: INSULIN DETEMIR 24 UNIT SQ SCH (10:00)
[2020-04-18] MEDS ORDERED: METOPROLOL SUCCINATE 50 MG TAB.SR.24H PO SCH ×2 (10:00→18:00)
[2020-04-18] MEDS ORDERED: SERTRALINE HCL 125 MG PO SCH (10:00)
[2020-04-18] MEDS ORDERED: (PENDING PHARMACY ID) (Ranolazine [Ranexa] 1,000 MG) PO SCH (10:00)
[2020-04-18] MEDS ORDERED: (PENDING PHARMACY ID) (Magnesium Oxide [Magnesium] 500 MG) PO SCH (10:00)
[2020-04-18] MEDS: TICAGRELOR 90 MG TABLET PO SCH ×2 (10:54→22:09)
[2020-04-18] MEDS: CHOLECALCIFEROL (D3) 1,000 UNIT (25 MCG) TABLET PO SCH (10:54)
[2020-04-18] MEDS: LISINOPRIL 5 MG TABLET PO SCH (10:54)
[2020-04-18] MEDS: ASPIRIN 81 MG TABLET, CHEWABLE PO SCH (10:54)
[2020-04-18] MEDS: PREGABALIN 100 MG CAPSULE PO SCH ×2 (10:54→22:09)
[2020-04-18] MEDS: OXYBUTYNIN CHLORIDE 5 MG TABLET PO SCH ×2 (10:55→17:58)
[2020-04-18] MEDS: MULTIVITAMIN TABLET PO SCH (10:55)
[2020-04-18] MEDS: RANOLAZINE 500 MG TAB.SR.12H PO SCH ×2 (12:29→22:09)
[2020-04-18] MEDS: MAGNESIUM OXIDE 400 MG TABLET PO SCH ×2 (12:29→17:57)
[2020-04-18] MEDS: ISOSORBIDE MONONITRATE 30 MG TAB.ER.24H PO SCH (12:29)
[2020-04-18] MEDS: SERTRALINE HCL 50 MG TABLET PO SCH (12:29)
[2020-04-18] MEDS ORDERED: ATORVASTATIN CALCIUM 80 MG TABLET PO SCH (22:00)
[2020-04-18] MEDS ORDERED: INSULIN GLARGINE,HUM.REC.ANLOG 1,000 UNIT/10 ML VIAL SUBCUT SCH (22:00)
[2020-04-18] MEDS: ATORVASTATIN CALCIUM 40 MG TABLET PO SCH (22:09)
[2020-04-18] MEDS: METOPROLOL SUCCINATE 25 MG TAB.SR.24H PO SCH (22:11)
[2020-04-18] MEDS ORDERED: INSULIN GLARGINE,HUM.REC.ANLOG 1,000 UNIT/10 ML VIAL (PYX) SUBCUT ONE (23:00)
--- NOTE | 2020-04-18 23:17 | Progress Note ---
Provider Note Provider Note: CARDIOLOGY PROGRESS NOTE by Dr. Ray Bartlett on 04/18/2020. OBJECTIVE: There is no further syncopal episodes. She denies any dizziness or palpitations. There is no chest pain or discomfort. There is no leg edema. There is no palpitations there is no arrhythmias seen on the monitor. There is no PND orthopnea or shortness of breath. Physical EXAMINATION: The patient is morbidly obese. At present in no acute distress. Selected Entries 04/18/20 04/18/20 16:00 17:13 Temperature 97.5 F Pulse Rate 60 Respiratory 18 Rate Blood Pressure 120/60 Blood Pressure 80 Mean O2 Sat by Pulse 100 Oximetry Head is atraumatic normocephalic. EYES: Pupils are equal round regular reactive to light accommodation. Extraocular movements are normal. There is no conjunctival pallor. There is no scleral icterus. EARS: Tympanic membranes are intact. External auditory canals are clear. NOSE: There is no deviated nasal septum. There is no inflammation nasal mucous membrane MOUTH: Mucous membranes of mouth are moist. There is no ulcers. There is no bleeding from the gums. THROAT: There is no redness of the oropharynx. There is no exudates. Skin: There is no skin rashes. There is no yulissa-care ecchymosis. There is no skin lesions. NECK: Neck is supple. There is no JVD. Carotids are equal there is no bruit. There is no lymphadenopathy. There is no goiter. LUNGS: Lungs are clear to auscultation percussion without any rhonchi rales or wheezing HEART: S1-S2 is heard. There is no S3 gallop. There is no S4 gallop. There is systolic murmur left sternal border and the apex there is no rub. ABDOMEN: Is obese. There is no hepatosplenomegaly. Bowel sounds are well heard. There is no tender areas masses. EXTREMITIES: Femorals are deep. Femorals are slightly diminished. There is no femoral bruits. Leg pulses are well felt. There is no pedal edema. There is no DVT or cellulitis. There is no cyanosis or clubbing. 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 PSYCHIATRIC: The patient judgment insight are intact her affect is normal. Chest X-Ray 04/17/20 14:50 IMPRESSION: No pneumothorax or displaced rib fracture. Head CT 04/17/20 14:50 IMPRESSION: MILD CHRONIC CHANGES OF ATROPHY AND MICROVASCULAR ISCHEMIA. NO ACUTE PROCESS. EVIDENCE OF ACUTE STROKE: NO. Head MRI 04/17/20 18:33 IMPRESSION: 1. No acute ischemia or infarction. 2. Minimal scattered areas of increased signal in the periventricular white matter suggestive of small vessel ischemic disease. The appearance is stable. 3. No acute process. No mass lesion. No significant interval change. Chest X-Ray 04/17/20 14:50 IMPRESSION: No pneumothorax or displaced rib fracture. Head CT 04/17/20 14:50 IMPRESSION: MILD CHRONIC CHANGES OF ATROPHY AND MICROVASCULAR ISCHEMIA. NO ACUTE PROCESS. EVIDENCE OF ACUTE STROKE: NO. Head MRI 04/17/20 18:33 IMPRESSION: 1. No acute ischemia or infarction. 2. Minimal scattered areas of increased signal in the periventricular white matter suggestive of small vessel ischemic disease. The appearance is stable. 3. No acute process. No mass lesion. No significant interval change. EKG: Done yesterday shows sinus bradycardia. Poor R wave progression anterior leads. Labs- All tests 24 hr 04/18/20 04/18/20 04/18/20 03:54 03:54 03:54 WBC 5.0 RBC 4.01 Hgb 11.1 L Hct 33.0 L MCV 82 MCH 27.7 MCHC 33.7 RDW 19.1 H Plt Count 178 Lymph % (Auto) 35.5 Boyle % (Auto) 8.2 Eos % (Auto) 3.1 Baso % (Auto) 0.4 Absolute Neuts (auto) 2.6 Absolute Lymphs (auto) 1.8 Absolute Monos (auto) 0.4 Absolute Eos (auto) 0.2 Absolute Basos (auto) 0.0 Seg Neutrophils % 52.8 Sodium 135.6 L Potassium 4.3 Chloride 103 Carbon Dioxide 27 Anion Gap 6 BUN 17 Creatinine 0.90 Est GFR ( Amer) > 60 Est GFR (MDRD) Non-Af > 60 Glucose 214 H POC Glucose Calcium 9.1 Creatine Kinase 39 CK-MB (CK-2) 0.30 Troponin I < 0.012 Triglycerides 131 Cholesterol 109.09 LDL Cholesterol Direct 44 VLDL Cholesterol 26.0 HDL Cholesterol 53 04/18/20 04/18/20 04/18/20 07:45 08:40 08:40 WBC RBC Hgb Hct MCV MCH MCHC RDW Plt Count Lymph % (Auto) Boyle % (Auto) Eos % (Auto) Baso % (Auto) Absolute Neuts (auto) Absolute Lymphs (auto) Absolute Monos (auto) Absolute Eos (auto) Absolute Basos (auto) Seg Neutrophils % Sodium Potassium Chloride Carbon Dioxide Anion Gap BUN Creatinine Est GFR ( Amer) Est GFR (MDRD) Non-Af Glucose POC Glucose 227 H Calcium Creatine Kinase 34 CK-MB (CK-2) < 0.22 Troponin I < 0.012 Triglycerides Cholesterol LDL Cholesterol Direct VLDL Cholesterol HDL Cholesterol 04/18/20 04/18/20 04/18/20 11:37 17:13 21:21 WBC RBC Hgb Hct MCV MCH MCHC RDW Plt Count Lymph % (Auto) Boyle % (Auto) Eos % (Auto) Baso % (Auto) Absolute Neuts (auto) Absolute Lymphs (auto) Absolute Monos (auto) Absolute Eos (auto) Absolute Basos (auto) Seg Neutrophils % Sodium Potassium Chloride Carbon Dioxide Anion Gap BUN Creatinine Est GFR ( Amer) Est GFR (MDRD) Non-Af Glucose POC Glucose 209 H 223 H 213 H Calcium Creatine Kinase CK-MB (CK-2) Troponin I Triglycerides Cholesterol LDL Cholesterol Direct VLDL Cholesterol HDL Cholesterol IMPRESSION/RECOMMENDATION: 1. Syncope. Patient by prior history and work-up has cardiac neurogenic syncope and also said to have autonomic neuropathy/dysfunction. Note her tilt table test study was positive in 2016 reproducing the patient's syncope with bradycardia. But need to assess with a 30-day event monitor if the patient does indeed need a pacemaker which would be indicated if the syncopal episodes are associated with significant bradycardia. But need to rule out associated autonomic dysfunction as a cause of patient's symptoms. Would recommend change the patient's metoprolol to extended release 25 mg p.o. every 12 hours and also increase the patient's Zoloft. As mentioned earlier we will get a 30-day event monitor as an outpatient. 2. History of tremors in bilateral hands. In view of this and and syncopal episodes would recommend CTA of the neck arteries to make sure the patient has no subclavian steal syndrome. Or vertebral artery stenosis. 3. Coronary artery disease. History of prior myocardial infarction history of stent in the past. History of coronary bypass Surgery with cardiac catheterization in 2016 showing only the CHASE to be patent the saphenous vein graft to the right coronary artery is atretic, and the saphenous vein graft to the obtuse marginal branch has diffuse disease as also the [place] vessel. Continue Ranexa, isosorbide mononitrate, and beta-brook note continue the patient's aspirin 81 mg p.o. daily along with Brilinta. 4. Positive tilt table study in 2016 diagnostic of neurocardiogenic syncope. 5. Hypertension: Blood pressure well controlled 6. Type 2 diabetes mellitus insulin-dependent with autonomic neuropathy. 7. Hyperlipidemia with excellent LDL HDL and triglyceride levels. 8. History of depression: Note would recommend increase the patient's Zoloft which also would be helpful in the patient's neurocardiogenic syncope. 9. Obesity: Would recommend a weight loss diet. Occasions reviewed. Medical regimen and management plan discussed with attending provider on the case medical decision making is of high complexity. This is due to adjustment of her medications and ordering tests. 40 minutes spent as patient more than 50% of time spent in direct patient care.
[2020-04-19 05:43] LABS: ANION GAP 7 (5-19); BLOOD UREA NITROGEN 16 mg/dL (7-20); CALCIUM 9.2 mg/dL (8.4-10.2); CARBON DIOXIDE 26 mmol/L (22-30); CHLORIDE 103 mmol/L (98-107); GLUCOSE 166 mg/dL (75-110)
[2020-04-19] MEDS: INSULIN LISPRO 100 UNIT/ML 3 ML VIAL SUBCUT SCH ×2 (08:50→12:52)
[2020-04-19] MEDS: ISOSORBIDE MONONITRATE 30 MG TAB.ER.24H PO SCH (08:50)
--- NOTE | 2020-04-19 09:44 | PDOC DISCHARGE SUMMARY ---
Impression - Admit/DC Date/PCP Admission Date/Primary Care Provider: 04/17/20 18:34 JESÚS BARBOUR MD Discharge Date: 04/19/20 - Discharge Diagnosis (1) Syncope Is this a current diagnosis for this admission?: Yes (2) UTI (urinary tract infection) Is this a current diagnosis for this admission?: Yes (3) Coronary arteriosclerosis after coronary artery bypass grafting Is this a current diagnosis for this admission?: Yes (4) Hyperlipemia Is this a current diagnosis for this admission?: Yes (5) Osteoarthritis Is this a current diagnosis for this admission?: Yes (6) TIA (transient ischemic attack) Is this a current diagnosis for this admission?: Yes - Additional Information Discharge Diet: Diabetic Discharge Activity: Activity As Tolerated Referrals: LIBERTAD MOBLEY PA-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] - Follow up as needed (f/u in 1 wk f/u with dr bridges ) Prescriptions: Cephalexin Monohydrate [Keflex 500 mg Capsule] 500 mg PO BID #14 capsule Home Medications: Aspirin [Aspirin 81 mg Chewable Tablet] 81 mg PO DAILY 10/18/17 Atorvastatin Calcium [Lipitor 80 mg Tablet] 80 mg PO QHS 10/18/17 Insulin Aspart [Novolog Insulin (Aspart) 100 unit/mL] 0 unit SQ .SLIDING SCALE 10/18/17 Insulin Detemir [Levemir Flextouch] 24 unit SQ DAILY 10/18/17 Metoprolol Succinate [Toprol Xl 50 mg Tab.sr] 50 mg PO DAILY 10/18/17 Ranolazine [Ranexa] 1,000 mg PO Q12 10/18/17 Sertraline HCl [Zoloft] 125 mg PO DAILY 10/18/17 Ticagrelor [Brilinta 90 mg Tablet] 90 mg PO Q12 10/18/17 Cholecalciferol (Vitamin D3) [Vitamin D3 1000 Unit Tablet] 3,000 unit PO DAILY 04/18/20 Diphenhydramine HCl [Benadryl 25 mg Capsule] 75 mg PO QHS 04/18/20 Isosorbide Mononitrate [Imdur 30 mg Tablet.er] 30 mg PO QAM 04/18/20 Lisinopril [Prinivil 5 mg Tablet] 5 mg PO DAILY 04/18/20 Magnesium Oxide [Magnesium] 500 mg PO BID 04/18/20 Multivitamin [One-A-Day Essential] 1 tab PO DAILY 04/18/20 Oxybutynin Chloride [Ditropan 5 mg Tablet] 5 mg PO BID 04/18/20 Pregabalin [Lyrica 100 mg Capsule] 100 mg PO Q12 04/18/20 Cephalexin Monohydrate [Keflex 500 mg Capsule] 500 mg PO BID #14 capsule 04/19/20 History of Present Illiness History of Present Illness: STEPHANIE POP is a 65 year old female This is a 65-year-old female's with a history of coronary artery disease status post bypass currently see a Dr. Bridges with a history of type 2 diabetes hypertension's hyperlipidemia history of the TIA in the past came to the emergency department with the complaining of passing out syncopal type of episodes when patient is feeling weakHis last several days And have a discount of episodes all the times have extensive evaluations done in the [place] and seen by the cardiologyPast and recently seen Dr. Bridges also Patient initial work-up including the CT of the head and MRI of the head was negative for any acute stroke Patient's have also found urinary tract infections currently on IV Rocephin Patient's denied any chest pain no short of breath When I saw the patient on the floor patient is alert awake oriented denied any complaints Hospital Course Hospital Course: Is a 65-year-old female presenting the emergency departments with a complaint of syncopal episode possible TIA symptoms patient initial CT of the head was negative\ Patient admitting in the hospital for further evaluations patient underwent for the MRI did not show any stroke Patient's cardiac enzyme is all negative's EKG all stable Also found a urinary tract infections which is started on her IV Rocephin and discharged switched to the p.o. Keflex Patient's have a very extensive work-up done for the syncopal at [place] and patient is found to be a neurocardiogenic syncopal and autonomous problems from the diabetes with ongoing problems Cardiology Dr. Bridges was consulted and suggest to follow outpatient Holter sahara mckeon He wants to switch the patient's metoprolol half tablet twice a day instead of 1 tablet Patient otherwise doing well with the physical therapy patient is back to the baseline's very extensive discussed with the patient about to continue to monitor about syncopal episode fall precautions Patient is discharged with home health and physical therapy Physical Exam Vital Signs: Temp Pulse Resp BP Pulse Ox 97.7 F 53 L 16 132/50 H 97 04/19/20 07:35 04/19/20 07:35 04/19/20 07:35 04/19/20 07:35 04/19/20 07:35 Intake & Output 04/18/20 04/19/20 04/20/20 06:59 06:59 06:59 Intake Total 1400 2190 Output Total 400 3800 Balance 1000 -1610 Weight 100.8 kg 99 kg General appearance: PRESENT: no acute distress, well-developed, well-nourished Head exam: PRESENT: atraumatic, normocephalic Eye exam: PRESENT: conjunctiva pink, EOMI, PERRLA. ABSENT: scleral icterus Ear exam: PRESENT: normal external ear exam Mouth exam: PRESENT: moist, tongue midline Neck exam: ABSENT: carotid bruit, JVD, lymphadenopathy, thyromegaly Respiratory exam: PRESENT: clear to auscultation kerri. ABSENT: rales, rhonchi, wheezes Cardiovascular exam: PRESENT: RRR. ABSENT: diastolic murmur, rubs, systolic murmur Pulses: PRESENT: normal dorsalis pedis pul Vascular exam: PRESENT: normal capillary refill GI/Abdominal exam: PRESENT: normal bowel sounds, soft. ABSENT: distended, guarding, mass, organolmegaly, rebound, tenderness Rectal exam: PRESENT: deferred Extremities exam: PRESENT: full ROM. ABSENT: calf tenderness, clubbing, pedal edema Neurological exam: PRESENT: alert, awake, oriented to person, oriented to place, oriented to time, oriented to situation, CN II-XII grossly intact. ABSENT: motor sensory deficit Psychiatric exam: PRESENT: appropriate affect, normal mood. ABSENT: homicidal ideation, suicidal ideation Skin exam: PRESENT: dry, intact, warm. ABSENT: cyanosis, rash Results Laboratory Results: WBC 5.0 10^3/uL (4.0-10.5) 04/18/20 03:54 RBC 4.01 10^6/uL (3.72-5.28) 04/18/20 03:54 Hgb 11.1 g/dL (12.0-15.5) L 04/18/20 03:54 Hct 33.0 % (36.0-47.0) L 04/18/20 03:54 MCV 82 fl (80-97) 04/18/20 03:54 MCH 27.7 pg (27.0-33.4) 04/18/20 03:54 MCHC 33.7 g/dL (32.0-36.0) 04/18/20 03:54 RDW 19.1 % (11.5-14.0) H 04/18/20 03:54 Plt Count 178 10^3/uL (150-450) 04/18/20 03:54 Lymph % (Auto) 35.5 % (13-45) 04/18/20 03:54 Boone % (Auto) 8.2 % (3-13) 04/18/20 03:54 Eos % (Auto) 3.1 % (0-6) 04/18/20 03:54 Baso % (Auto) 0.4 % (0-2) 04/18/20 03:54 Absolute Neuts (auto) 2.6 10^3/uL (1.7-8.2) 04/18/20 03:54 Absolute Lymphs (auto) 1.8 10^3/uL (0.5-4.7) 04/18/20 03:54 Absolute Monos (auto) 0.4 10^3/uL (0.1-1.4) 04/18/20 03:54 Absolute Eos (auto) 0.2 10^3/uL (0.0-0.6) 04/18/20 03:54 Absolute Basos (auto) 0.0 10^3/uL (0.0-0.2) 04/18/20 03:54 Seg Neutrophils % 52.8 % (42-78) 04/18/20 03:54 Sodium 135.7 mmol/L (137-145) L 04/19/20 04:30 Potassium 4.0 mmol/L (3.6-5.0) 04/19/20 04:30 Chloride 103 mmol/L (98-107) 04/19/20 04:30 Carbon Dioxide 26 mmol/L (22-30) 04/19/20 04:30 Anion Gap 7 (5-19) 04/19/20 04:30 BUN 16 mg/dL (7-20) 04/19/20 04:30 Creatinine 1.00 mg/dL (0.52-1.25) 04/19/20 04:30 Est GFR ( Amer) > 60 (>60) 04/19/20 04:30 Est GFR (MDRD) Non-Af 55 (>60) L 04/19/20 04:30 Glucose 166 mg/dL (75-110) H 04/19/20 04:30 POC Glucose 197 mg/dL (70-110) H 04/19/20 07:35 Calcium 9.2 mg/dL (8.4-10.2) 04/19/20 04:30 Total Bilirubin 0.9 mg/dL (0.2-1.3) 04/17/20 14:59 Direct Bilirubin 0.0 mg/dL (0.0-0.4) 04/17/20 14:59 Neonat Total Bilirubin Not Reportable 04/17/20 14:59 Neonat Direct Bilirubin Not Reportable 04/17/20 14:59 Neonat Indirect Bili Not Reportable 04/17/20 14:59 AST 30 U/L (14-36) 04/17/20 14:59 ALT 24 U/L (<35) 04/17/20 14:59 Alkaline Phosphatase 68 U/L (38-126) 04/17/20 14:59 Creatine Kinase 34 U/L (30-135) 04/18/20 08:40 CK-MB (CK-2) < 0.22 ng/mL (<4.55) 04/18/20 08:40 Troponin I < 0.012 ng/mL 04/18/20 08:40 Total Protein 6.8 g/dL (6.3-8.2) 04/17/20 14:59 Albumin 3.9 g/dL (3.5-5.0) 04/17/20 14:59 Triglycerides 131 mg/dL (<150) 04/18/20 03:54 Cholesterol 109.09 mg/dL (0-200) 04/18/20 03:54 LDL Cholesterol Direct 44 mg/dL (<100) 04/18/20 03:54 VLDL Cholesterol 26.0 mg/dL (10-31) 04/18/20 03:54 HDL Cholesterol 53 mg/dL (>40) 04/18/20 03:54 Urine Color PATIENCE 04/17/20 16:00 Urine Appearance CLOUDY 04/17/20 16:00 Urine pH 5.0 (5.0-9.0) 04/17/20 16:00 Ur Specific Rowe 1.012 04/17/20 16:00 Urine Protein NEGATIVE mg/dL (NEGATIVE) 04/17/20 16:00 Urine Glucose (UA) >=500 mg/dL (NEGATIVE) H 04/17/20 16:00 Urine Ketones NEGATIVE mg/dL (NEGATIVE) 04/17/20 16:00 Urine Blood NEGATIVE (NEGATIVE) 04/17/20 16:00 Urine Nitrite POSITIVE (NEGATIVE) H 04/17/20 16:00 Urine Bilirubin NEGATIVE (NEGATIVE) 04/17/20 16:00 Urine Urobilinogen NEGATIVE mg/dL (<2.0) 04/17/20 16:00 Ur Leukocyte Esterase SMALL (NEGATIVE) H 04/17/20 16:00 Urine WBC (Auto) 5 /HPF 04/17/20 16:00 Urine RBC (Auto) 3 /HPF 04/17/20 16:00 U Hyaline Cast (Auto) 10 /LPF 04/17/20 16:00 Urine Bacteria (Auto) 3+ /HPF 04/17/20 16:00 Squamous Epi Cells Auto 26 /HPF 04/17/20 16:00 Amorphous Sediment Auto TRACE /HPF 04/17/20 16:00 Urine Mucus (Auto) FEW /LPF 04/17/20 16:00 Urine Ascorbic Acid NEGATIVE (NEGATIVE) 04/17/20 16:00 04/17/20 04/17/20 04/18/20 14:59 21:37 03:54 CK-MB (CK-2) 0.41 0.30 Troponin I < 0.012 < 0.012 < 0.012 04/18/20 08:40 CK-MB (CK-2) < 0.22 Troponin I < 0.012 Impressions: Chest X-Ray 04/17/20 14:50 IMPRESSION: No pneumothorax or displaced rib fracture. Head CT 04/17/20 14:50 IMPRESSION: MILD CHRONIC CHANGES OF ATROPHY AND MICROVASCULAR ISCHEMIA. NO ACUTE PROCESS. EVIDENCE OF ACUTE STROKE: NO. Head MRI 04/17/20 18:33 IMPRESSION: 1. No acute ischemia or infarction. 2. Minimal scattered areas of increased signal in the periventricular white matter suggestive of small vessel ischemic disease. The appearance is stable. 3. No acute process. No mass lesion. No significant interval change. Plan Time Spent: Greater than 30 Minutes - Follow in office in 1 week and follow with the Dr. Bridges Stroke Is this a Stroke Patient?: No Acute Heart Failure - Is this a Heart Failure Patient?: No
[2020-04-19] MEDS: SERTRALINE HCL 50 MG TABLET PO SCH (10:37)
[2020-04-19] MEDS: CEFTRIAXONE 1 GM/D5W RTU 1 GM/50 ML RTUPB IV SCH (10:37)
[2020-04-19] MEDS: MAGNESIUM OXIDE 400 MG TABLET PO SCH (10:38)
[2020-04-19] MEDS: LISINOPRIL 5 MG TABLET PO SCH (10:38)
[2020-04-19] MEDS: MULTIVITAMIN TABLET PO SCH (10:38)
[2020-04-19] MEDS: RANOLAZINE 500 MG TAB.SR.12H PO SCH (10:38)
[2020-04-19] MEDS: ASPIRIN 81 MG TABLET, CHEWABLE PO SCH (10:38)
[2020-04-19] MEDS: CHOLECALCIFEROL (D3) 1,000 UNIT (25 MCG) TABLET PO SCH (10:39)
[2020-04-19] MEDS: TICAGRELOR 90 MG TABLET PO SCH (10:39)
[2020-04-19] MEDS: METOPROLOL SUCCINATE 25 MG TAB.SR.24H PO SCH (10:39)
[2020-04-19] MEDS: OXYBUTYNIN CHLORIDE 5 MG TABLET PO SCH (10:39)
[2020-04-19] MEDS: PREGABALIN 100 MG CAPSULE PO SCH (10:39)
[2020-04-19] MEDS: ENOXAPARIN SODIUM INJ 40 MG/0.4 ML DISP.SYRIN SUBCUT SCH (10:40)
[2020-04-19 12:04] VITALS: BP 157/74
--- NOTE | 2020-04-19 12:41 | RADIOLOGY REPORT (SQ) ---
EXAM DESCRIPTION: CAROTID DOPPLER IMAGES COMPLETED DATE/TIME: 04/18/2020 5:54 pm REASON FOR STUDY: tia R42 DIZZINESS AND GIDDINESS I25.42 CORONARY ARTERY DISSECTION COMPARISON: 11/06/2017 TECHNIQUE: Grayscale ultrasound, Doppler velocity and spectra, and color Doppler images acquired of the extra-cranial carotid and vertebral arteries. Images stored on PACS. LIMITATIONS: None. FINDINGS: RIGHT CAROTID CCA Velocities: Within normal limits. ICA Velocities Peak systolic 86 cm/s. End diastolic 27 cm/s. Proximal ICA/CCA peak systolic ratio 1.4. Intimal thickening LEFT CAROTID CCA Velocities: Within normal limits. ICA Velocities Peak systolic 82 cm/s. End diastolic 23 cm/s. Proximal ICA/CCA peak systolic ratio 1.0. Intimal thickening VERTEBRAL ARTERIES: Antegrade flow. Normal waveforms. SUBCLAVIAN ARTERIES: No finding. OTHER: No other significant finding. IMPRESSION: There is no hemodynamically significant stenosis. COMMENT: Quality ID #[id number]: Velocity criteria are extrapolated from the diameter data as defined by t he Society of Radiologists in Ultrasound Consensus Conference. Radiology 2003: 229; 340-346. TECHNICAL DOCUMENTATION: JOB ID: [id number] 2010 [employer]- All Rights Reserved Reading location - IP/workstation name: [email or web address]
--- NOTE | 2020-04-19 21:17 | Progress Note ---
Provider Note Provider Note: CARDIOLOGY PROGRESS NOTE by Dr. Sirena Evans on 04/19/20. Subjective: The patient has no further episodes of syncope or dizziness. There is no vertigo episodes. There is no chest pain or discomfort. There is no shortness of breath. There is no PND or orthopnea. There is no leg edema. There is no arrhythmias seen on the monitor. PHYSICAL EXAMINATION: The patient is moderate to severely obese in no acute distress. Selected Entries 04/19/20 04/19/20 04/19/20 09:22 11:58 12:00 Temperature 97.7 F Pulse Rate 53 L Heart Rate ( 55 Monitors) Respiratory 16 Rate Blood Pressure 157/74 H [Left Upper Arm ] O2 Sat by Pulse 97 Oximetry Oxygen Delivery Room Air Method ( includes room air) Head is atraumatic normocephalic. EYES: Pupils are equal round regular reactive to light accommodation. Extraocular movements are normal. There is no conjunctival pallor. There is no scleral icterus. EARS: Tympanic membranes are intact. External auditory canals are clear. NOSE: There is no deviated nasal septum. There is no inflammation nasal mucous membrane MOUTH: Mucous membranes of mouth are moist. There is no ulcers. There is no bleeding from the gums. THROAT: There is no redness of the oropharynx. There is no exudates. Skin: There is no skin rashes. There is no yulissa-care ecchymosis. There is no skin lesions. NECK: Neck is supple. There is no JVD. Carotids are equal there is no bruit. There is no lymphadenopathy. There is no goiter. LUNGS: Lungs are clear to auscultation percussion without any rhonchi rales or wheezing HEART: S1-S2 is heard. There is no S3 gallop. There is no S4 gallop. There is sy stolic murmur left sternal border and the apex there is no rub. ABDOMEN: Is obese. There is no hepatosplenomegaly. Bowel sounds are well heard. There is no tender areas masses. EXTREMITIES: Femorals are deep. Femorals are slightly diminished. There is no femoral bruits. Leg pulses are well felt. There is no pedal edema. There is no DVT or cellulitis. There is no cyanosis or clubbing. PIPELINE EXECUTIVE: Patient is conscious awake alert oriented x3 with no focal deficits. PSYCHIATRIC: The patient judgment insight are intact her affect is normal. Labs- All tests 24 hr 04/19/20 04/19/20 04/19/20 04:30 07:35 12:25 Sodium 135.7 L Potassium 4.0 Chloride 103 Carbon Dioxide 26 Anion Gap 7 BUN 16 Creatinine 1.00 Est GFR ( Amer) > 60 Est GFR (MDRD) Non-Af 55 L Glucose 166 H POC Glucose 197 H 241 H Calcium 9.2 Chest X-Ray 04/17/20 14:50 IMPRESSION: No pneumothorax or displaced rib fracture. Head CT 04/17/20 14:50 IMPRESSION: MILD CHRONIC CHANGES OF ATROPHY AND MICROVASCULAR ISCHEMIA. NO ACUTE PROCESS. EVIDENCE OF ACUTE STROKE: NO. Head MRI 04/17/20 18:33 IMPRESSION: 1. No acute ischemia or infarction. 2. Minimal scattered areas of increased signal in the periventricular white matter suggestive of small vessel ischemic disease. The appearance is stable. 3. No acute process. No mass lesion. No significant interval change. Carotid Doppler Study 04/18/20 18:37 IMPRESSION: There is no hemodynamically significant stenosis. There is normal antegrade flow in the vertebral arteries. IMPRESSION/RECOMMENDATION: 1. Syncope. Patient by prior history and work-up has cardiac neurogenic syncope and also said to have autonomic neuropathy/dysfunction. Note her tilt table test study was positive in 2016 reproducing the patient's syncope with bradycardia. But need to assess with a 30-day event monitor if the patient does indeed need a pacemaker which would be indicated if the syncopal episodes are associated with significant bradycardia. But need to rule out associated autonomic dysfunction as a cause of patient's symptoms. Would recommend change the patient's metoprolol to extended release 25 mg p.o. every 12 hours and also increase the patient's Zoloft. As mentioned earlier we will get a 30-day event monitor as an outpatient. 2. Patient's carotid Doppler shows no significant stenosis. Also the vertebral arteries have antegrade flow and no problems with it. Hence we will not order a CTA of the head and neck arteries. 3. Coronary artery disease. History of prior myocardial infarction history of stent in the past. History of coronary bypass Surgery with cardiac catheterization in 2016 showing only the CHASE to be patent the saphenous vein graft to the right coronary artery is atretic, and the saphenous vein graft to the obtuse marginal branch has diffuse disease as also the [place] vessel. Continue Ranexa, isosorbide mononitrate, and beta-brook note continue the patient's aspirin 81 mg p.o. daily along with Brilinta. Later as an outpatient we will get a IV Lexiscan Cardiolite stress test and echocardiogram. 4. Positive tilt table study in 2016 diagnostic of neurocardiogenic syncope. 5. Hypertension: Blood pressure well controlled 6. Type 2 diabetes mellitus insulin-dependent with autonomic neuropathy. 7. Hyperlipidemia with excellent LDL HDL and triglyceride levels. 8. History of depression: Note would recommend increase the patient's Zoloft which also would be helpful in the patient's neurocardiogenic syncope. 9. Obesity: Would recommend a weight loss diet. Occasions reviewed. Medical regimen and management plan discussed with attending provider on the case medical decision making of moderate complexity.. 40 minutes spent as patient more than 50% of time spent in direct patient care. Cardiac status is stable. We will sign off and have the patient follow-up with me in the office. The patient has my cell phone number and will contact me with any problems. She already has an appointment scheduled to see me in the office.
== END 2020-04-19 14:53 | disposition home or self-care (01) | DRG 312 ==
LOC: ER 14:18 → EH 18:16 → OBSVTOIN 18:34 → 3W 21:27
PROVIDERS: ADMIT Family Medicine; ATTEND Family Medicine
DX: R55 Syncope and collapse (principal); N39.0 Urinary tract infection, site not specified; I25.10 Atherosclerotic heart disease of native coronary artery without angina pectoris; Z95.1 Presence of aortocoronary bypass graft; E78.5 Hyperlipidemia, unspecified; I11.0 Hypertensive heart disease with heart failure; I50.9 Heart failure, unspecified; K21.9 Gastro-esophageal reflux disease without esophagitis; E11.43 Type 2 diabetes mellitus with diabetic autonomic (poly)neuropathy; M19.90 Unspecified osteoarthritis, unspecified site; F32.9 Major depressive disorder, single episode, unspecified; Z86.73 Personal history of transient ischemic attack (TIA), and cerebral infarction without residual deficits; Z90.49 Acquired absence of other specified parts of digestive tract; Z95.5 Presence of coronary angioplasty implant and graft; Z79.82 Long term (current) use of aspirin; Z79.4 Long term (current) use of insulin; Z79.899 Other long term (current) drug therapy; Z91.040 Latex allergy status; Z79.02 Long term (current) use of antithrombotics/antiplatelets; I25.2 Old myocardial infarction
CPT/HCPCS: 36415; 70450; 70551; 71045; 80048; 80053; 80061; 81001; 82550; 82553; 82962; 84484; 85025; 87040; 87086; 87088; 87186; 93005; 93010; 93880; 96361; 96365; 99285; J0696; J1650; J1815; J3490; J7030

== ENCOUNTER → 2020-10-26 | Outpatient (CLI) | payer MEDICARE, MEDICAID ==
--- OUTSIDE RECORDS SUMMARY | 2020-10-26 17:02 | XMS REPORT ---
:1955 Author Organization [facility] Address [address] [address] Care Team Providers Name Role Phone Unavailable Unavailable Unavailable Allergies, Adverse Reactions, Alerts This patient has no known allergies or adverse reactions. Medications Ordered Filled Start Stop Current Ordering Indication Dosage Frequency Signature Comments Components Medication Medication Date Date Medication? Clinician (SIG) Name Name Pregabalin 2020-0 Yes 0 Pregabalin 100 MG Oral 9-17 100 MG Capsule 00:00: Oral 00 Capsule Refills: 0 ,,, Start : 0Active Metoprolol 2020-0 Yes 0 Metoprolol Tartrate 50 9-17 Tartrate MG Oral 00:00: 50 MG Oral Tablet 00 Tablet Refills: 0 ,,, Start : 0Active Omeprazole 2020-0 Yes 0 Omeprazole 20 MG Oral 9-17 20 MG Oral Tablet 00:00: Tablet Delayed 00 Delayed Release Release Refills: 0 ,,, Start : 0Active Atorvastati 2020-0 Yes 0 Atorvastat n Calcium 9-17 in Calcium 80 MG Oral 00:00: 80 MG Oral Tablet 00 Tablet Refills: 0 ,,, Start : 0Active Sertraline 2020-0 Yes 0 Sertraline HCl - 100 9-17 HCl - 100 MG Oral 00:00: MG Oral Tablet 00 Tablet Refills: 0 ,,, Start : 0Active Brilinta 90 2020-0 Yes 0 Brilinta MG Oral 9-17 90 MG Oral Tablet 00:00: Tablet 00 Refills: 0 ,,, Start : 0Active Isosorbide 2020-0 Yes 0 Isosorbide Mononitrate 9-17 Mononitrat ER 30 MG 00:00: e ER 30 MG Oral Tablet 00 Oral Extended Tablet Release 24 Extended Hour Release 24 Hour Refills: 0 ,,, Start : 0Active Oxybutynin 2020-0 Yes 0 Oxybutynin Chloride 5 9-17 Chloride 5 MG Oral 00:00: MG Oral Tablet 00 Tablet Refills: 0 ,,, Start : 0Active Ranexa 1000 2020-0 Yes 0 Ranexa MG Oral 9-17 1000 MG Tablet 00:00: Oral Extended 00 Tablet Release 12 Extended Hour Release 12 Hour Refills: 0 ,,, Start : 0Active Nitroglycer 2020-0 Yes 0 Nitroglyce in 0.4 MG 9-17 rin 0.4 MG Sublingual 00:00: Sublingual Tablet 00 Tablet Sublingual Sublingual Refills: 0 ,,, Start : 0Active Aspirin 81 2020-0 Yes 0 1 QD Aspirin 81 81 MG Oral 9-17 81 MG Oral Tablet 00:00: Tablet Delayed 00 Delayed Release Release TAKE 1 TABLET DAILY Refills: 0 ,,, Start : 0Active Multiple 2020-0 Yes 0 1 QD Multiple Vitamins 9-17 Vitamins Oral Tablet 00:00: Oral 00 Tablet TAKE 1 TABLET DAILY. Refills: 0 ,,, Start : 0Active Furosemide 2020-0 Yes 0 Furosemide 20 MG Oral 9-17 20 MG Oral Tablet 00:00: Tablet 00 TAKE 1 TAB DAILY NEEDED IF WEIGHT INCREASES 3 LBS OVERNIGHT OR 5 LBS IN 1 WEEK Refills: 0 ,,, Start : 0Active Lisinopril 2020-0 Yes 0 1 QD Lisinopril 5 MG Oral 9-17 5 MG Oral Tablet 00:00: Tablet 00 TAKE 1 TABLET DAILY Refills: 0 ,,, Start : 0Active 30 Tablet Pack Magnesium 2020-0 Yes 0 1 QD Magnesium 250 MG Oral 9-17 250 MG Tablet 00:00: Oral 00 Tablet TAKE 1 TABLET DAILY. Refills: 0 ,,, Start : 0Active PA Vitamin 2020-0 Yes 0 1 QD PA Vitamin D-3 125 MCG 9-17 D-3 125 (5000 UT) 00:00: MCG (5000 Oral 00 UT) Oral Capsule Capsule TAKE 1 CAPSULE DAILY Refills: 0 ,,, Start : 0Active Problems Condition Condition Condition Status Onset Resolution Last Treatin g Comments Name Details Category Date Date Treatment Clinician Date PVD PVD Problem Active (peripheral (peripheral vascular vascular disease) disease) Bilateral Bilateral Problem Active pain of leg pain of leg and foot and foot Procedures Procedure Date / Time Performed Performing Clinician Devic e History of Cardiac catheterization with stent placement History of Coronary artery bypass graft Results Test Description Test Time Test Comments Text Results Atomic Results Result Comments SARS-CoV-2 RNA Resp Ql HANNAH+probe 2020-09-11 00:00:00 Test Item Value Reference Range Comments SARS-CoV-2 RNA Resp Ql HANNAH+probe Not detected [place] Covid Public [facility] Case ID: (test code = 75530-4) [id number] EXTRA LAVENDER-TOP [id number] 06:19:00 Test Item Value Reference Range Comments EXTRA LAVENDER-TOP TUBE (test code = 06593041) ZAYDA CHOLESTEROL, [id number] 06:19:00 Test Item Value Reference Range Comments CHOLESTEROL, TOTAL (test code = 2093-3) 132 mg/dL <200 HDL [id number] 06:19:00 Test Item Value Reference Range Comments HDL CHOLESTEROL (test code = 2085-9) 57 mg/dL >=50 [id number] 06:19:00 Test Item Value Reference Range Comments TRIGLYCERIDES (test code = 2571-8) 112 mg/dL <150 [id number] 06:19:00 Test Item Value Reference Range Comments LDL-CHOLESTEROL (test 55 mg/dL (calc) <=99 Reference range: <100Desirable code = 34181-7) range <100 mg/dL for primary prevention;<70 m g/dL for patients with CH D or diabetic patientswith > o r = 2 CHD risk factors.LDL-C is now calculated using the Anita lculation, which is a validated n ovel method providingbetter accuracy than the Friedewald e quation in theestimation of LDL-C.Kehinde BRAGG et al. ASHLEE. 201 3;310(19): 2777-1629(http:/ /education.[employer]alesio.Whitetruffle/ faq/SFX012) CHOL/HDLC [id number] 06:19:00 Test Item Value Reference Range Comments CHOL/HDLC RATIO (test code = 9830-1) 2.3 (calc) <5.0 NON HDL [id number] 06:19:00 Test Item Value Reference Range Comments NON HDL CHOLESTEROL (test 75 mg/dL (calc) <130 For alexander dillon with diabetes code = 03152-7) plus 1 major ASC VD riskfactor, pino ting to a non-HDL-C goal o f <100 mg/dL(LDL-C of < 70 mg/dL) is considered a therapeuticoptio n. Family History Family Member Diagnosis Comments Start Date Stop Date Unspecified Family history of coronary artery Family History disease Unspecified Family history of migraine Family History headaches Unspecified Family history of congestive heart Family History failure Unspecified Family history of essential Family History hypertension Unspecified Family history of kidney disease Family History Social History Smoking Status Start Date Stop Date Never smoked tobacco (finding) Vital Signs This patient has no known vital signs.
--- NOTE | 2020-10-26 18:07 | RADIOLOGY REPORT (SQ) ---
EXAM DESCRIPTION: WRIST LEFT 3 VIEWS IMAGES COMPLETED DATE/TIME: 10/26/2020 4:15 pm REASON FOR STUDY: (M25.532)PAIN IN LEFT WRIST M25.532 PAIN IN LEFT WRIST . Wrist popped couple of weeks ago which aggravated patient's pain. Medial wrist pain. COMPARISON: None. NUMBER OF VIEWS: Three views. TECHNIQUE: AP, lateral, and oblique radiographic images acquired of the left wrist. LIMITATIONS: None. FINDINGS: MINERALIZATION: Osteopenia. BONES: No acute fracture or dislocation. No worrisome bone lesions. Normal alignment. SOFT TISSUES: No soft tissue swelling. No foreign body. OTHER: No other significant finding. IMPRESSION: Moderate osteopenia. No acute abnormality of the left wrist. TECHNICAL DOCUMENTATION: JOB ID: [id number] 2010 [employer]- All Rights Reserved Reading location - IP/workstation name: [email or web address]
== END ==
LOC: RAD 16:58
PROVIDERS: ATTEND Physician Assistant
DX: M25.532 Pain in left wrist (principal); M85.88 Other specified disorders of bone density and structure, other site